=== PATIENT | male | born 1935 | race Caucasian/White ===

== ENCOUNTER 2019-06-26 16:01 | Inpatient (IN) | payer MEDICARE, OTHER ==
[2019-06-26] MEDS ORDERED: Sodium Chloride 0.9% 10 ML Syringe FLUSH PRN (16:17)
[2019-06-26] MEDS ORDERED: Sodium Chloride 0.9% 1,000 ML IV ONE (16:17)
--- NOTE | 2019-06-26 16:47 | EDM.PDOC ---
ED HPI GENERAL MEDICAL PROBLEM - General Chief Complaint: Fever Stated Complaint: [facility] Time Seen by Provider: 06/26/19 16:16 Source of Information: Reports: Patient, Family (son), Senior Living Records, RN Notes Reviewed History Limitations: Reports: No Limitations - History of Present Illness INITIAL COMMENTS - FREE TEXT/NARRATIVE: Patient is an 84-year-old male who is brought into the ED by EMS for the evaluation of decreased O2 sats and a fever. The patient is a resident at [facility]. The son notes that since yesterday, the patient has had decreased O2 sats and increased shortness of breath. He was asked if he wanted to come to the ER yesterday, and but he denied this. He notes that today the patient was having increasing difficulties with breathing, generalized weakness and lethargy, and developed a fever of 101.2F. Staff at [facility] report the patient's O2 sats were in the low 80s on 3 L, and he is usually on room air, he does not really require oxygen at. They do note he is having a productive cough , but the patient states he is not able to get anything out. Patient's blood pressure was mildly low at [facility] as well, systolically 89/54. The patient is alert and oriented, and will answer questions when asked, but then kind of zones out after being asked questions. At time of triage in the ER temperature is 101.2F, respiratory rate 22, heart rate 94, O2 sat is 91% on 2 L nasal cannula and his blood pressure is 117/63. Patient notes he is a DNR, and he is "ready to ". - Related Data Allergies Allergy/AdvReac Type Severity Reaction Status Date / Time No Known Allergies Allergy Verified 06/26/19 16:12 Home Meds: Home Meds Acetaminophen [Tylenol] 325 mg PO BID 06/26/19 [History] Albuterol Sulfate 2.5 mg IH Q4HR PRN 06/26/19 [History] Furosemide [Lasix] 80 mg PO DAILY 06/26/19 [History] Lisinopril [Prinivil] 10 mg PO BID 06/26/19 [History] Metoprolol Succinate 75 mg PO DAILY 06/26/19 [History] Nystatin 1 each TOP BID PRN 06/26/19 [History] Rosuvastatin [Crestor] 10 mg PO DAILY 06/26/19 [History] Terazosin [Hytrin] 2 mg PO DAILY 06/26/19 [History] Warfarin Sodium [Coumadin] 5 mg PO ASDIRECTED 06/26/19 [History] Warfarin [Coumadin] 2.5 mg PO ASDIRECTED 06/26/19 [History] Past Medical History HEENT History: Reports: Impaired Vision Cardiovascular History: Reports: Afib, Blood Clots/VTE/DVT, Heart Failure, High Cholesterol, Hypertension Respiratory History: Reports: Sleep Apnea Gastrointestinal History: Reports: Chronic Constipation Genitourinary History: Reports: None Musculoskeletal History: Reports: Other (See Below) Other Musculoskeletal History: Myalgia Neurological History: Reports: CVA, Speech Problems Psychiatric History: Reports: None Endocrine/Metabolic History: Reports: Hypokalemia, Obesity/BMI 30+, Osteopenia, Vitamin D Deficiency Hematologic History: Reports: Anemia, Anticoagulation Therapy Immunologic History: Reports: None Oncologic (Cancer) History: Reports: None Dermatologic History: Reports: None - Infectious Disease History Infectious Disease History: Reports: None Social & Family History - Tobacco Use Smoking Status *Q: Never Smoker - Caffeine Use Caffeine Use: Reports: None - Recreational Drug Use Recreational Drug Use: No ED ROS GENERAL - Review of Systems Review Of Systems: See Below Constitutional: Reports: Fever. Denies: Chills Respiratory: Reports: Shortness of Breath, Cough, Sputum Cardiovascular: Denies: Chest Pain Endocrine: Reports: No Symptoms GI/Abdominal: Denies: Abdominal Pain, Constipation, Diarrhea, Nausea, Vomiting : Denies: Dysuria, Frequency, Urgency Musculoskeletal: Reports: No Symptoms Skin: Reports: No Symptoms Neurological: Reports: No Symptoms Psychiatric: Reports: No Symptoms Hematologic/Lymphatic: Reports: No Symptoms Immunologic: Reports: No Symptoms ED EXAM, SEPSIS - Physical Exam Exam: See Below Exam Limited By: No Limitations General Appearance: Alert (when asked questions), Mild Distress (mildly tachypneic, taking rapid, shallow, labored breaths.), Obese Eye Exam: Bilateral Eye: Normal Inspection Throat/Mouth: Normal Inspection, Normal Lips, Normal Teeth, Normal Gums, Normal Oropharynx, Normal Voice, No Airway Compromise Head: Atraumatic, Normocephalic Neck: Normal Inspection Respiratory/Chest: No Respiratory Distress, No Accessory Muscle Use, Chest Non- Tender, Decreased Breath Sounds (diffuse bilaterally), Rhonchi (slight on Left lung), Accessory Muscle Use (belly breathing) Cardiovascular: Normal Peripheral Pulses, Regular Rate, Rhythm, No Murmur Peripheral Pulses: 3+: Radial (L), Radial (R) GI/Abdominal Exam: Normal Bowel Sounds, Soft, Non-Tender, No Distention, No Mass Extremities: Normal Inspection, Normal Capillary Refill Neurological: Alert, Oriented, Normal Cognition, No Motor/Sensory Deficits Psychiatric: Normal Affect, Normal Mood Skin: Warm, Dry, Intact, Normal Color, No Rash Course - Vital Signs Last Recorded V/S: Last Vital Signs Temp 101.2 F H 06/26/19 16:06 Pulse 94 06/26/19 16:06 Resp 22 H 06/26/19 16:06 BP 117/63 06/26/19 16:06 Pulse Ox 87 L 06/26/19 16:06 - Orders/Labs/Meds Orders: Active Orders 24 hr Category Date Time Status Queen Catheter Insertion [Insert Urinary Catheter] [OM. 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 [MOLEC] Stat Lab 06/26/19 18:58 Ordered Furosemide [Lasix] Med 06/26/19 18:57 Once 80 mg IVPUSH NOW ONE Levofloxacin/Dextrose 5%-Water [Levaquin in D5W 500 MG/ Med 06/26/19 18:27 Active 100 ML] 500 mg Premix Bag 1 bag IV ONETIME Sodium Chloride 0.9% [Saline Flush] Med 06/26/19 16:17 Active 10 ml FLUSH ASDIRECTED PRN Blood Culture x2 Reflex Set [OM.PC] Stat Oth 06/26/19 16:17 Ordered Saline Lock Insert [OM.PC] Stat Oth 06/26/19 16:17 Ordered Medication Orders Levofloxacin/Dextrose 500 mg/ (Premix) 100 mls @ 100 mls/hr IV ONETIME ONE Stop: 06/26/19 19:26 Sodium Chloride (Saline Flush) 10 ml FLUSH ASDIRECTED PRN PRN Reason: Keep Vein Open Last Admin: 06/26/19 17:00 Dose: 10 ml Labs: Laboratory Tests 06/26/19 06/26/19 06/26/19 Range/Units 16:33 16:33 16:33 WBC (4.23-9.07) K/mm3 RBC (4.63-6.08) M/mm3 Hgb (13.7-17.5) gm/dl Hct (40.1-51.0) % MCV (79.0-92.2) fl MCH (25.7-32.2) pg MCHC (32.2-35.5) g/dl RDW Std Deviation (35.1-43.9) fL Plt Count (163-337) K/mm3 MPV (9.4-12.3) fl Neutrophils % (Manual) (40-60) % Band Neutrophils % (0-10) % Lymphocytes % (Manual) (20-40) % Atypical Lymphs % % Monocytes % (Manual) (2-10) % Eosinophils % (Manual) (0.8-7.0) % Basophils % (Manual) (0.2-1.2) Platelet Estimate Hypochromasia Target Cells Tear Drop Cells RBC Morph Comment PT 29.1 H (9.7-12.0) SECONDS INR 2.83 Sodium 143 (136-145) mEq/L Potassium 4.7 (3.5-5.1) mEq/L Chloride 109 H (98-107) mEq/L Carbon Dioxide 33 H (21-32) mEq/L Anion Gap 5.7 (5-15) BUN 31 H (7-18) mg/dL Creatinine 1.5 H (0.7-1.3) mg/dL Est Cr Clr Drug Dosing 34.26 mL/min Estimated GFR (MDRD) 45 (>60) mL/min BUN/Creatinine Ratio 20.7 H (14-18) Glucose 134 H (83-115) mg/dL Lactic Acid 1.3 (0.4-2.0) mmol/L Calcium 8.3 L (8.5-10.1) mg/dL Total Bilirubin 0.2 (0.2-1.0) mg/dL AST 18 (15-37) U/L ALT 19 (16-63) U/L Alkaline Phosphatase 62 (46-116) U/L C-Reactive Protein 24.0 H* (<1.0) mg/dL NT-Pro-B Natriuret Pep (0-450) pg/mL Total Protein 7.2 (6.4-8.2) g/dl Albumin 2.5 L (3.4-5.0) g/dl Globulin 4.7 gm/dL Albumin/Globulin Ratio 0.5 L (1-2) Urine Color (Yellow) Urine Appearance (Clear) Urine pH (5.0-8.0) Ur Specific [place] (1.005-1.030) Urine Protein (Negative) Urine Glucose (UA) (Negative) Urine Ketones (Negative) Urine Occult Blood (Negative) Urine Nitrite (Negative) Urine Bilirubin (Negative) Urine Urobilinogen (0.2-1.0) Ur Leukocyte Esterase (Negative) Urine RBC (0-5) /hpf Urine WBC (0-5) /hpf Ur Epithelial Cells (0-5) /hpf Urine Bacteria (FEW) /hpf Hyaline Casts (0-5) /lpf Coarse Granular Casts (0-5) /hpf Urine Mucus (FEW) /hpf 06/26/19 06/26/19 06/26/19 Range/Units 16:40 17:12 17:15 WBC 9.52 H (4.23-9.07) K/mm3 RBC 3.96 L (4.63-6.08) M/mm3 Hgb 10.5 L (13.7-17.5) gm/dl Hct 35.7 L (40.1-51.0) % MCV 90.2 (79.0-92.2) fl MCH 26.5 (25.7-32.2) pg MCHC 29.4 L (32.2-35.5) g/dl RDW Std Deviation 46.4 H (35.1-43.9) fL Plt Count 156 L (163-337) K/mm3 MPV 10.0 (9.4-12.3) fl Neutrophils % (Manual) 85 H (40-60) % Band Neutrophils % 0 (0-10) % Lymphocytes % (Manual) 8 L (20-40) % Atypical Lymphs % 0 % Monocytes % (Manual) 6 (2-10) % Eosinophils % (Manual) 1 (0.8-7.0) % Basophils % (Manual) 0 L (0.2-1.2) Platelet Estimate Decreased Hypochromasia 2+ moderate Target Cells 1+ slight Tear Drop Cells 1+ slight RBC Morph Comment Not Reportable PT (9.7-12.0) SECONDS INR Sodium (136-145) mEq/L Potassium (3.5-5.1) mEq/L Chloride (98-107) mEq/L Carbon Dioxide (21-32) mEq/L Anion Gap (5-15) BUN (7-18) mg/dL Creatinine (0.7-1.3) mg/dL Est Cr Clr Drug Dosing mL/min Estimated GFR (MDRD) (>60) mL/min BUN/Creatinine Ratio (14-18) Glucose (83-115) mg/dL Lactic Acid (0.4-2.0) mmol/L Calcium (8.5-10.1) mg/dL Total Bilirubin (0.2-1.0) mg/dL AST (15-37) U/L ALT (16-63) U/L Alkaline Phosphatase (46-116) U/L C-Reactive Protein (<1.0) mg/dL NT-Pro-B Natriuret Pep 7419 H (0-450) pg/mL Total Protein (6.4-8.2) g/dl Albumin (3.4-5.0) g/dl Globulin gm/dL Albumin/Globulin Ratio (1-2) Urine Color Yellow (Yellow) Urine Appearance Clear (Clear) Urine pH 5.5 (5.0-8.0) Ur Specific [place] 1.025 (1.005-1.030) Urine Protein 2+ H (Negative) Urine Glucose (UA) Negative (Negative) Urine Ketones Negative (Negative) Urine Occult Blood 2+ H (Negative) Urine Nitrite Negative (Negative) Urine Bilirubin Negative (Negative) Urine Urobilinogen 0.2 (0.2-1.0) Ur Leukocyte Esterase Negative (Negative) Urine RBC 0-5 (0-5) /hpf Urine WBC 0-5 (0-5) /hpf Ur Epithelial Cells 5-10 H (0-5) /hpf Urine Bacteria Few (FEW) /hpf Hyaline Casts 0-5 (0-5) /lpf Coarse Granular Casts 0-5 (0-5) /hpf Urine Mucus Few (FEW) /hpf Meds: Medications Generic Name Dose Route Start Last Admin Trade Name Freq PRN Reason Stop Dose Admin Levofloxacin/Dextrose 500 mg/ 100 mls @ 100 mls/hr 06/26/19 18:27 Premix IV 06/26/19 19:26 ONETIME ONE Sodium Chloride 10 ml 06/26/19 16:17 06/26/19 17:00 Saline Flush FLUSH 10 ml ASDIRECTED PRN Administration Keep Vein Open Discontinued Medications Generic Name Dose Route Start Last Admin Trade Name Freq PRN Reason Stop Dose Admin Sodium Chloride 1,000 mls @ 999 mls/hr 06/26/19 16:17 06/26/19 17:05 Normal Saline IV 06/26/19 17:17 999 mls/hr BOLUS ONE Administration - Re-Assessments/Exams Free Text/Narrative Re-Assessment/Exam: 06/26/19 16:52 Patient presents to the ED for the evaluation of a fever and increased O2 sats. At the patient's initial exam, clinically positive for sepsis in nature. I did order blood cultures 2, CBC, CMP, CRP, lactate sepsis reflex, PT/INR, urinalysis by quick catheter, chest x-ray, an IV with IV fluids. Due to the patient's morbid obesity, ideal body weight will be used, with a plan of the total 66 kg IBW, the bolus was calculated to be 1,986 for ideal body weight. Although he is not hypotensive at this time, fluids to run at 150 mils per hour , due to the patient receiving 80 mg Lasix daily, I do not want to worsen his heart failure before, the labs results. 06/26/19 17:33 Some labs have been resulted, lactic acid is 1.3, white blood cell count 9.5 with 85% Neutrophils and 0 bands, CRP markedly elevated at 24. Chest x-ray is done, and demonstrates a possible left-sided consolidation, pneumonia versus fluid at this time. This x-ray was reviewed by myself and Dr. Dunaway. 06/26/19 18:59 Patient's B[place], and is [place] 7419, I did discuss results with the patient and the patient's family, I do not have the official radiology read for the chest x-ray, but again it does show left-sided consolidation, with pneumonia versus fluid. However with the fever and CRP would suggest a bacterial infection, on top of the elevated BNP as well. I did discuss the case with Dr. Torres, he is accepting the patient or hospital admission. He requested a MRSA swab be done, and I did insert a Queen catheter, as Dr. Torres wanted to repeat his normal Lasix dose of 80 mg. Departure - Departure Time of Disposition: 19:01 Disposition: Admitted As Inpatient 68 Condition: Fair Clinical Impression: Pneumonia Qualifiers: Pneumonia type: due to unspecified organism Laterality: left Lung location: unspecified part of lung Qualified Code(s): J18.9 - Pneumonia, unspecified organism Acute exacerbation of CHF (congestive heart failure) Qualifiers: Heart failure type: unspecified Qualified Code(s): I50.9 - Heart failure, unspecified - Discharge Information *PRESCRIPTION DRUG MONITORING PROGRAM REVIEWED*: No *COPY OF PRESCRIPTION DRUG MONITORING REPORT IN PATIENT GAMALIEL: No Referrals: Maria De Jesus Khanna MD [Physician] - Forms: ED Department Discharge - My Orders Last 24 Hours: My Active Orders 06/26/19 16:17 Chest 1V Frontal [CR] Stat Sodium Chloride 0.9% [Saline Flush] 10 ml FLUSH ASDIRECTED PRN Blood Culture x2 Reflex Set [OM.PC] Stat Saline Lock Insert [OM.PC] Stat 06/26/19 16:33 CULTURE BLOOD [BC] Stat 06/26/19 16:40 CULTURE BLOOD [BC] Stat 06/26/19 17:10 Insert Queen Catheter [Insert Urinary Catheter] [OM.PC] Stat Urinary Catheter Assessment [RC] ASDIRECTED 06/26/19 17:15 CULTURE URINE [RM] Routine 06/26/19 18:27 Levofloxacin/Dextrose 5%-Water [Levaquin in D5W 500 MG/100 ML] 500 mg Premix Bag 1 bag IV ONETIME 06/26/19 18:53 Urinary Catheter Assessment [RC] ASDIRECTED 06/26/19 18:57 Furosemide [Lasix] 80 mg IVPUSH NOW ONE 06/26/19 18:58 METH-RESIST S.AUR,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 - Assessment/Plan Last 24 Hours: My Active Orders 06/26/19 16:17 Chest 1V Frontal [CR] Stat Sodium Chloride 0.9% [Saline Flush] 10 ml FLUSH ASDIRECTED PRN Blood Culture x2 Reflex Set [OM.PC] Stat Saline Lock Insert [OM.PC] Stat 06/26/19 16:33 CULTURE BLOOD [BC] Stat 06/26/19 16:40 CULTURE BLOOD [BC] Stat 06/26/19 17:10 Insert Queen Catheter [Insert Urinary Catheter] [OM.PC] Stat Urinary Catheter Assessment [RC] ASDIRECTED 06/26/19 17:15 CULTURE URINE [RM] Routine 06/26/19 18:27 Levofloxacin/Dextrose 5%-Water [Levaquin in D5W 500 MG/100 ML] 500 mg Premix Bag 1 bag IV ONETIME 06/26/19 18:53 Urinary Catheter Assessment [RC] ASDIRECTED 06/26/19 18:57 Furosemide [Lasix] 80 mg IVPUSH NOW ONE 06/26/19 18:58 METH-RESIST S.AUR,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
[2019-06-26] MEDS ORDERED: Levofloxacin/Dextrose 5%-Water 500 MG in Premix Bag 1 BAG IV ONE (18:27)
[2019-06-26] MEDS ORDERED: Furosemide 40 MG/4 ML VIAL IVPUSH ONE (18:57)
[2019-06-26] MEDS ORDERED: Acetaminophen 325 MG Tab PO ONE (20:16)
[2019-06-26] MEDS ORDERED: Ondansetron 4 MG/2 ML SDV IV PRN (21:02)
[2019-06-26] MEDS ORDERED: Albuterol 0.083% 2.5 MG/3 ML Neb Soln NEB PRN (21:02)
--- NOTE | 2019-06-26 21:09 | PCM.HP.2 ---
H&P History of Present Illness - General Date of Service: 06/26/19 Admit Problem/Dx: Admission Diagnosis/Problem Admission Diagnosis/Problem Pneumonia - History of Present Illness Initial Comments - Free Text/Narative: 84-year-old male who is a poor historian so most of the history was obtained through his son and emergency room notes presented to the emergency room via EMS secondary to decreased O2 sats and fever. Patient has had increasing shortness of breath for last couple of days and he was out today at his sons for a football game and towards the end of football game told us and he needs to go to the emergency room. Apparently the staff at [facility], where he resides, recommended he go to the emergency room yesterday. Patient has had increasing difficulties with breathing, generalized weakness and malaise , and a fever 101.2. Pulse ox were as low as low 80s on 3 L and he is usually on room air. Patient has a productive cough but is unable to mobilize sputum. Lab work in the emergency room: WBC 9.5, hemoglobin 10.5, platelet count 156, C- reactive protein 24.0, lactic acid 1.3, proBNP 7419, INR 2.83, sodium 143, potassium 4.7, chloride 109, bicarbonate 33, BUN 31, creatinine 1.5, normal liver function tests except albumin 2.5. Chest x-ray showed a left lower lobe pneumonia In the emergency room he was given Levaquin 500 mg IV and a saline bolus. I then asked for him to get 80 mg of IV Lasix. - Related Data Allergies/Adverse Reactions: Allergies Allergy/AdvReac Type Severity Reaction Status Date / Time No Known Allergies Allergy Verified 06/26/19 20:55 Home Medications: Home Meds Acetaminophen [Tylenol] 650 mg PO BID 06/26/19 [History] Albuterol Sulfate 2.5 mg IH Q4HR PRN 06/26/19 [History] Furosemide [Lasix] 80 mg PO DAILY 06/26/19 [History] Lisinopril [Prinivil] 10 mg PO BID 06/26/19 [History] Metoprolol Succinate 75 mg PO DAILY 06/26/19 [History] Nystatin 1 each TOP BID PRN 06/26/19 [History] Rosuvastatin [Crestor] 10 mg PO DAILY 06/26/19 [History] Terazosin [Hytrin] 2 mg PO DAILY 06/26/19 [History] Warfarin Sodium [Coumadin] 5 mg PO ASDIRECTED 06/26/19 [History] Warfarin [Coumadin] 2.5 mg PO ASDIRECTED 06/26/19 [History] Past Medical History HEENT History: Reports: Impaired Vision Cardiovascular History: Reports: Afib, Blood Clots/VTE/DVT, Heart Failure, High Cholesterol, Hypertension Respiratory History: Reports: Sleep Apnea Gastrointestinal History: Reports: Chronic Constipation Genitourinary History: Reports: None Musculoskeletal History: Reports: Other (See Below) Other Musculoskeletal History: Myalgia Neurological History: Reports: CVA, Speech Problems Psychiatric History: Reports: None Endocrine/Metabolic History: Reports: Hypokalemia, Obesity/BMI 30+, Osteopenia, Vitamin D Deficiency Hematologic History: Reports: Anemia, Anticoagulation Therapy Immunologic History: Reports: None Oncologic (Cancer) History: Reports: None Dermatologic History: Reports: None - Infectious Disease History Infectious Disease History: Reports: None Social & Family History - Tobacco Use Smoking Status *Q: Never Smoker - Caffeine Use Caffeine Use: Reports: None - Recreational Drug Use Recreational Drug Use: No H&P Review of Systems - Review of Systems: Review Of Systems: Comprehensive ROS is negative, except as noted in HPI. Exam - Exam Exam: See Below - Vital Signs Vital Signs: Last Vital Signs Temp 101 F H 06/26/19 20:22 Pulse 94 06/26/19 16:06 Resp 22 H 06/26/19 16:06 BP 117/63 06/26/19 16:06 Pulse Ox 87 L 06/26/19 16:06 Weight: 257 lb 8 oz - Exam Quality Assessment: Supplemental Oxygen General: Alert, Moderate Distress HEENT: Conjunctiva Clear, Mucosa Moist & [place] Neck: Supple Lungs: Decreased Breath Sounds, Rhonchi (left lobe) Cardiovascular: Regular Rate, Irregular Rhythm GI/Abdominal Exam: Normal Bowel Sounds, Soft, Non-Tender, No Distention Back Exam: Normal Inspection Extremities: Normal Inspection, Non-Tender, Pedal Edema Skin: Warm, Dry, Intact Neurological: No: Cranial Nerves Intact (left-sided facial droop) Neuro Extensive - Mental Status: Alert, Disorientation to Time Neuro Extensive - Motor, Sensory, Reflexes: Other (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) Psychiatric: Alert - Patient Data Lab Results Last 24 hrs: Laboratory Results - last 24 hr 06/26/19 06/26/19 06/26/19 Range/Units 16:33 16:33 16:33 WBC (4.23-9.07) K/mm3 RBC (4.63-6.08) M/mm3 Hgb (13.7-17.5) gm/dl Hct (40.1-51.0) % MCV (79.0-92.2) fl MCH (25.7-32.2) pg MCHC (32.2-35.5) g/dl RDW Std Deviation (35.1-43.9) fL Plt Count (163-337) K/mm3 MPV (9.4-12.3) fl Neutrophils % (Manual) (40-60) % Band Neutrophils % (0-10) % Lymphocytes % (Manual) (20-40) % Atypical Lymphs % % Monocytes % (Manual) (2-10) % Eosinophils % (Manual) (0.8-7.0) % Basophils % (Manual) (0.2-1.2) Platelet Estimate Hypochromasia Target Cells Tear Drop Cells RBC Morph Comment PT 29.1 H (9.7-12.0) SECONDS INR 2.83 Sodium 143 (136-145) mEq/L Potassium 4.7 (3.5-5.1) mEq/L Chloride 109 H (98-107) mEq/L Carbon Dioxide 33 H (21-32) mEq/L Anion Gap 5.7 (5-15) BUN 31 H (7-18) mg/dL Creatinine 1.5 H (0.7-1.3) mg/dL Est Cr Clr Drug Dosing 34.26 mL/min Estimated GFR (MDRD) 45 (>60) mL/min BUN/Creatinine Ratio 20.7 H (14-18) Glucose 134 H (83-115) mg/dL Lactic Acid 1.3 (0.4-2.0) mmol/L Calcium 8.3 L (8.5-10.1) mg/dL Total Bilirubin 0.2 (0.2-1.0) mg/dL AST 18 (15-37) U/L ALT 19 (16-63) U/L Alkaline Phosphatase 62 (46-116) U/L C-Reactive Protein 24.0 H* (<1.0) mg/dL NT-Pro-B Natriuret Pep (0-450) pg/mL Total Protein 7.2 (6.4-8.2) g/dl Albumin 2.5 L (3.4-5.0) g/dl Globulin 4.7 gm/dL Albumin/Globulin Ratio 0.5 L (1-2) Urine Color (Yellow) Urine Appearance (Clear) Urine pH (5.0-8.0) Ur Specific [place] (1.005-1.030) Urine Protein (Negative) Urine Glucose (UA) (Negative) Urine Ketones (Negative) Urine Occult Blood (Negative) Urine Nitrite (Negative) Urine Bilirubin (Negative) Urine Urobilinogen (0.2-1.0) Ur Leukocyte Esterase (Negative) Urine RBC (0-5) /hpf Urine WBC (0-5) /hpf Ur Epithelial Cells (0-5) /hpf Urine Bacteria (FEW) /hpf Hyaline Casts (0-5) /lpf Coarse Granular Casts (0-5) /hpf Urine Mucus (FEW) /hpf 06/26/19 06/26/19 06/26/19 Range/Units 16:40 17:12 17:15 WBC 9.52 H (4.23-9.07) K/mm3 RBC 3.96 L (4.63-6.08) M/mm3 Hgb 10.5 L (13.7-17.5) gm/dl Hct 35.7 L (40.1-51.0) % MCV 90.2 (79.0-92.2) fl MCH 26.5 (25.7-32.2) pg MCHC 29.4 L (32.2-35.5) g/dl RDW Std Deviation 46.4 H (35.1-43.9) fL Plt Count 156 L (163-337) K/mm3 MPV 10.0 (9.4-12.3) fl Neutrophils % (Manual) 85 H (40-60) % Band Neutrophils % 0 (0-10) % Lymphocytes % (Manual) 8 L (20-40) % Atypical Lymphs % 0 % Monocytes % (Manual) 6 (2-10) % Eosinophils % (Manual) 1 (0.8-7.0) % Basophils % (Manual) 0 L (0.2-1.2) Platelet Estimate Decreased Hypochromasia 2+ moderate Target Cells 1+ slight Tear Drop Cells 1+ slight RBC Morph Comment Not Reportable PT (9.7-12.0) SECONDS INR Sodium (136-145) mEq/L Potassium (3.5-5.1) mEq/L Chloride (98-107) mEq/L Carbon Dioxide (21-32) mEq/L Anion Gap (5-15) BUN (7-18) mg/dL Creatinine (0.7-1.3) mg/dL Est Cr Clr Drug Dosing mL/min Estimated GFR (MDRD) (>60) mL/min BUN/Creatinine Ratio (14-18) Glucose (83-115) mg/dL Lactic Acid (0.4-2.0) mmol/L Calcium (8.5-10.1) mg/dL Total Bilirubin (0.2-1.0) mg/dL AST (15-37) U/L ALT (16-63) U/L Alkaline Phosphatase (46-116) U/L C-Reactive Protein (<1.0) mg/dL NT-Pro-B Natriuret Pep 7419 H (0-450) pg/mL Total Protein (6.4-8.2) g/dl Albumin (3.4-5.0) g/dl Globulin gm/dL Albumin/Globulin Ratio (1-2) Urine Color Yellow (Yellow) Urine Appearance Clear (Clear) Urine pH 5.5 (5.0-8.0) Ur Specific [place] 1.025 (1.005-1.030) Urine Protein 2+ H (Negative) Urine Glucose (UA) Negative (Negative) Urine Ketones Negative (Negative) Urine Occult Blood 2+ H (Negative) Urine Nitrite Negative (Negative) Urine Bilirubin Negative (Negative) Urine Urobilinogen 0.2 (0.2-1.0) Ur Leukocyte Esterase Negative (Negative) Urine RBC 0-5 (0-5) /hpf Urine WBC 0-5 (0-5) /hpf Ur Epithelial Cells 5-10 H (0-5) /hpf Urine Bacteria Few (FEW) /hpf Hyaline Casts 0-5 (0-5) /lpf Coarse Granular Casts 0-5 (0-5) /hpf Urine Mucus Few (FEW) /hpf Result Diagrams: 06/26/19 16:40 06/26/19 16:33 Problem List Initiated/Reviewed/Updated: Yes Orders Last 24hrs: Active Orders 24 hr Category Date Time Status Admission Status [Patient Status] [ADT] Routine ADT 06/26/19 19:26 Active Queen Catheter Insertion [Insert Urinary Catheter] [OM. Care 06/26/19 19:00 Ordered PC] Q24H Insert [place] Catheter [Insert Urinary Catheter] [OM.PC] Care 06/26/19 17:10 Ordered Stat Oxygen Therapy [RC] PRN Care 06/26/19 21:02 Ordered RT Aerosol Therapy [RC] ASDIRECTED Care 06/26/19 21:04 Ordered Up With Assistance [RC] ASDIRECTED Care 06/26/19 21:02 Ordered Urinary Catheter Assessment [RC] ASDIRECTED Care 06/26/19 17:10 Active Urinary Catheter Assessment [RC] ASDIRECTED Care 06/26/19 18:53 Active VTE/DVT Education [RC] PER UNIT ROUTINE Care 06/26/19 21:02 Ordered Vital Signs [RC] Q4H Care 06/26/19 21:02 Ordered Respiratory Care Assess and Treatment [CONS] Routine Cons 06/26/19 21:05 Ordered Heart Healthy Diet [DIET] Diet 06/27/19 Breakfast Ordered Chest 1V Frontal [CR] Stat Exams 06/26/19 16:17 Taken BLOOD GAS ARTERIAL [BG] Stat Lab 06/26/19 21:02 Ordered C-REACTIVE PROTEIN [CHEM] AM Lab 06/27/19 05:11 Ordered C-REACTIVE PROTEIN [CHEM] AM Lab 06/28/19 05:11 Ordered C-REACTIVE PROTEIN [CHEM] AM Lab 06/29/19 05:11 Ordered CBC WITH AUTO DIFF [HEME] AM Lab 06/27/19 05:11 Ordered CBC WITH AUTO DIFF [HEME] AM Lab 06/28/19 05:11 Ordered CBC WITH AUTO DIFF [HEME] AM Lab 06/29/19 05:11 Ordered COMPREHENSIVE METABOLIC PN,CMP [CHEM] AM Lab 06/27/19 05:11 Ordered COMPREHENSIVE METABOLIC PN,CMP [CHEM] AM Lab 06/28/19 05:11 Ordered COMPREHENSIVE METABOLIC PN,CMP [CHEM] AM Lab 06/29/19 05:11 Ordered CULTURE BLOOD [BC] Stat Lab 06/26/19 16:33 Received CULTURE BLOOD [BC] Stat Lab 06/26/19 16:40 Received CULTURE SPUTUM + SMEAR [RM] Stat Lab 06/26/19 19:03 Ordered CULTURE URINE [RM] Routine Lab 06/26/19 17:15 Received INFLUENZA A+B AG SCREEN [RM] Routine Lab 06/26/19 21:08 Ordered INR,PT,PROTHROMBIN TIME [COAG] AM Lab 06/27/19 05:11 Ordered INR,PT,PROTHROMBIN TIME [COAG] AM Lab 06/28/19 05:11 Ordered INR,PT,PROTHROMBIN TIME [COAG] AM Lab 06/29/19 05:11 Ordered LEGIONELLA ANTIGEN [MREF] Routine Lab 06/26/19 21:08 Ordered MAGNESIUM [CHEM] AM Lab 06/27/19 05:11 Ordered MAGNESIUM [CHEM] AM Lab 06/28/19 05:11 Ordered MAGNESIUM [CHEM] AM Lab 06/29/19 05:11 Ordered METH-RESIST S.AUR,MRSA BY PCR [place] [place] Stat Lab 06/26/19 19:35 Received RESPIRATORY PANEL Routine Lab 06/26/19 21:08 Ordered STREP PNEUMONIAE ANTIGEN [MREF] Routine Lab 06/26/19 21:07 Ordered Acetaminophen [Tylenol] Med 06/26/19 21:02 Ordered 650 mg PO Q4H PRN Albuterol [Proventil Neb Soln] Med 06/26/19 21:02 Ordered 2.5 mg NEB Q2H PRN Albuterol/Ipratropium [DuoNeb 3.0-0.5 MG/3 ML] Med 06/26/19 21:15 Ordered 3 ml NEB Q4H Cefepime [Maxipime in D5W 2 GM/50 ML] 2 gm Med 06/26/19 21:15 Ordered Premix Bag 1 bag IV Q8H Ondansetron [Zofran] Med 06/26/19 21:02 Ordered 4 mg IV Q4H PRN Pharmacy to Dose - Vancomycin Med 06/26/19 21:15 Ordered 1 dose .XX ASDIRECTED Pharmacy to Dose - Warfarin Med 06/26/19 21:15 Ordered 1 dose .XX ASDIRECTED Sodium Chloride 0.9% [Saline Flush] Med 06/26/19 16:17 Active 10 ml FLUSH ASDIRECTED PRN methylPREDNISolone Sod Succ [Solu-MEDROL] Med 06/26/19 21:15 Ordered 60 mg IVPUSH Q6H Blood Culture x2 Reflex Set [OM.PC] Stat Oth 06/26/19 16:17 Ordered Saline Lock Insert [OM.PC] Stat Oth 06/26/19 16:17 Ordered Resuscitation Status Routine Resus Stat 06/26/19 21:02 Ordered Medication Orders Acetaminophen (Tylenol) 650 mg PO Q4H PRN PRN Reason: Pain (Mild 1-3)/fever Albuterol (Proventil Neb Soln) 2.5 mg NEB Q2H PRN PRN Reason: Shortness Of Breath/wheezing Albuterol/Ipratropium (Duoneb 3.0-0.5 Mg/3 Ml) 3 ml NEB Q4H OMAYRA Cefepime HCl 2 gm/ Premix 50 mls @ 100 mls/hr IV Q8H OMAYRA Methylprednisolone Sodium Succinate (Solu-Medrol) 60 mg IVPUSH Q6H OMAYRA Ondansetron HCl (Zofran) 4 mg IV Q4H PRN PRN Reason: Nausea/Vomiting Sodium Chloride (Saline Flush) 10 ml FLUSH ASDIRECTED PRN PRN Reason: Keep Vein Open Last Admin: 06/26/19 17:00 Dose: 10 ml Vancomycin HCl (Pharmacy To Dose - Vancomycin) 1 dose .XX ASDIRECTED OMAYRA Warfarin Sodium (Pharmacy To Dose - Warfarin) 1 dose .XX ASDIRECTED OMAYRA Assessment/Plan Comment:: Assessment * Left lower lobe pneumonia * Respiratory failure * ABG: PH 7.31, PCO2 60.7, PCO2 73.0, HCO3 29.9 - acute respiratory acidosis * Acute on chronic congestive heart failure - unclear what type since we don't have an echocardiogram * Rate controlled atrial fibrillation * Anticoagulation on warfarin * acute on chronic renal insufficiency with acute renal injury * History of CVA with right-sided weakness and dysarthria * History of hypertension and hyperlipidemia Plan * Admit to Medr floor on telemetry * BiPAP - patient is a DNI and DNR. I discussed care with him and his son and we will treat with BiPAP but not escalate to intubation. * IV steroids * DuoNeb every 4 hours and albuterol every 2 hours when necessary * Add cefepime 2 g pharmacy to dose and vancomycin * continue Levaquin pharmacy to dose * Warfarin pharmacy to dose * reconcile home meds * Daily CBC, CMP, mag, and INR * VTE prophylaxis with warfarin * CODE STATUS: DNR/DNI * Length of stay likely 3-4 days. - Mortality Measure Prognosis:: Poor
[2019-06-26] MEDS: methylPREDNISolone Sodium Succinate 40 MG/1 ML SDV IVPUSH SCH (21:35)
[2019-06-26] MEDS: Cefepime 2 GM in Premix Bag 1 BAG IV SCH (21:35)
[2019-06-26] MEDS ORDERED: Nystatin Topical Powder 15 GM Bottle TOP PRN (21:41)
[2019-06-26] MEDS ORDERED: Vancomycin 2 GM in Sodium Chloride 0.9% 500 ML IV ONE (22:00)
[2019-06-26] MEDS: guaiFENesin 600 MG Tab.ER PO SCH (22:24)
[2019-06-26] MEDS: Albuterol/Ipratropium 3.0-0.5 MG/3 ML Neb Soln NEB SCH (22:44)
[2019-06-26] MEDS ORDERED: Warfarin 2.5 MG Tab PO ONE (23:30)
[2019-06-27] MEDS: Albuterol/Ipratropium 3.0-0.5 MG/3 ML Neb Soln NEB SCH ×5 (01:34→17:17)
[2019-06-27] MEDS: methylPREDNISolone Sodium Succinate 40 MG/1 ML SDV IVPUSH SCH ×4 (02:42→20:46)
--- NOTE | 2019-06-27 08:33 | PCM.PN ---
- General Info Date of Service: 06/27/19 Admission Dx/Problem (Free Text): Admission Diagnosis/Problem Admission Diagnosis/Problem Pneumonia Subjective Update: Tiarra is doing better. Less air hunger and improving oxygenation. Functional Status: Reports: Pain Controlled - Review of Systems General: Reports: No Symptoms HEENT: Reports: No Symptoms Pulmonary: Reports: Shortness of Breath Cardiovascular: Reports: No Symptoms - Patient Data Vitals - Most Recent: Last Vital Signs Temp 97.5 F 06/27/19 07:41 Pulse 87 06/27/19 07:41 Resp 20 06/27/19 07:41 BP 151/95 H 06/27/19 07:41 Pulse Ox 92 L 06/27/19 07:41 Weight - Most Recent: 261 lb 12.8 oz I&O - Last 24 Hours: Intake & Output 06/26/19 06/27/19 06/27/19 22:59 06:59 14:59 Intake Total 750 Output Total 350 1650 Balance -350 -900 Lab Results Last 24 Hours: Laboratory Results - last 24 hr 06/26/19 06/26/19 06/26/19 Range/Units 16:33 16:33 16:33 WBC (4.23-9.07) K/mm3 RBC (4.63-6.08) M/mm3 Hgb (13.7-17.5) gm/dl Hct (40.1-51.0) % MCV (79.0-92.2) fl MCH (25.7-32.2) pg MCHC (32.2-35.5) g/dl RDW Std Deviation (35.1-43.9) fL Plt Count (163-337) K/mm3 MPV (9.4-12.3) fl Neut % (Auto) (34.0-67.9) % Lymph % (Auto) (21.8-53.1) % Cache % (Auto) (5.3-12.2) % Eos % (Auto) (0.8-7.0) Baso % (Auto) (0.1-1.2) % Neut # (Auto) (1.78-5.38) K/mm3 Lymph # (Auto) (1.32-3.57) K/mm3 Cache # (Auto) (0.30-0.82) K/mm3 Eos # (Auto) (0.04-0.54) K/mm3 Baso # (Auto) (0.01-0.08) K/mm3 Neutrophils % (Manual) (40-60) % Band Neutrophils % (0-10) % Lymphocytes % (Manual) (20-40) % Atypical Lymphs % % Monocytes % (Manual) (2-10) % Eosinophils % (Manual) (0.8-7.0) % Basophils % (Manual) (0.2-1.2) Manual Slide Review Platelet Estimate Hypochromasia Target Cells Tear Drop Cells RBC Morph Comment PT 29.1 H (9.7-12.0) SECONDS INR 2.83 Puncture Site ABG pH (7.35-7.45) ABG pCO2 (35.0-45.0) mmHg ABG pO2 (80.0-100.0) mmHg ABG HCO3 (22.0-26.0) meq/L ABG O2 Saturation (96.0-97.0) % ABG Base Excess (-2-2.0) A-a Gradient mmHg O2 Delivery Device Oxygen Flow Rate FiO2 (21.00-100.00) % Sodium 143 (136-145) mEq/L Potassium 4.7 (3.5-5.1) mEq/L Chloride 109 H (98-107) mEq/L Carbon Dioxide 33 H (21-32) mEq/L Anion Gap 5.7 (5-15) BUN 31 H (7-18) mg/dL Creatinine 1.5 H (0.7-1.3) mg/dL Est Cr Clr Drug Dosing 34.26 mL/min Estimated GFR (MDRD) 45 (>60) mL/min BUN/Creatinine Ratio 20.7 H (14-18) Glucose 134 H (83-115) mg/dL Lactic Acid 1.3 (0.4-2.0) mmol/L Calcium 8.3 L (8.5-10.1) mg/dL Magnesium (1.8-2.4) mg/dl Total Bilirubin 0.2 (0.2-1.0) mg/dL AST 18 (15-37) U/L ALT 19 (16-63) U/L Alkaline Phosphatase 62 (46-116) U/L C-Reactive Protein 24.0 H* (<1.0) mg/dL NT-Pro-B Natriuret Pep (0-450) pg/mL Total Protein 7.2 (6.4-8.2) g/dl Albumin 2.5 L (3.4-5.0) g/dl Globulin 4.7 gm/dL Albumin/Globulin Ratio 0.5 L (1-2) Urine Color (Yellow) Urine Appearance (Clear) Urine pH (5.0-8.0) Ur Specific [place] (1.005-1.030) Urine Protein (Negative) Urine Glucose (UA) (Negative) Urine Ketones (Negative) Urine Occult Blood (Negative) Urine Nitrite (Negative) Urine Bilirubin (Negative) Urine Urobilinogen (0.2-1.0) Ur Leukocyte Esterase (Negative) Urine RBC (0-5) /hpf Urine WBC (0-5) /hpf Ur Epithelial Cells (0-5) /hpf Urine Bacteria (FEW) /hpf Hyaline Casts (0-5) /lpf Coarse Granular Casts (0-5) /hpf Urine Mucus (FEW) /hpf MRSA (PCR) 06/26/19 06/26/19 06/26/19 Range/Units 16:40 17:12 17:15 WBC 9.52 H (4.23-9.07) K/mm3 RBC 3.96 L (4.63-6.08) M/mm3 Hgb 10.5 L (13.7-17.5) gm/dl Hct 35.7 L (40.1-51.0) % MCV 90.2 (79.0-92.2) fl MCH 26.5 (25.7-32.2) pg MCHC 29.4 L (32.2-35.5) g/dl RDW Std Deviation 46.4 H (35.1-43.9) fL Plt Count 156 L (163-337) K/mm3 MPV 10.0 (9.4-12.3) fl Neut % (Auto) (34.0-67.9) % Lymph % (Auto) (21.8-53.1) % Cache % (Auto) (5.3-12.2) % Eos % (Auto) (0.8-7.0) Baso % (Auto) (0.1-1.2) % Neut # (Auto) (1.78-5.38) K/mm3 Lymph # (Auto) (1.32-3.57) K/mm3 Cache # (Auto) (0.30-0.82) K/mm3 Eos # (Auto) (0.04-0.54) K/mm3 Baso # (Auto) (0.01-0.08) K/mm3 Neutrophils % (Manual) 85 H (40-60) % Band Neutrophils % 0 (0-10) % Lymphocytes % (Manual) 8 L (20-40) % Atypical Lymphs % 0 % Monocytes % (Manual) 6 (2-10) % Eosinophils % (Manual) 1 (0.8-7.0) % Basophils % (Manual) 0 L (0.2-1.2) Manual Slide Review Platelet Estimate Decreased Hypochromasia 2+ moderate Target Cells 1+ slight Tear Drop Cells 1+ slight RBC Morph Comment Not Reportable PT (9.7-12.0) SECONDS INR Puncture Site ABG pH (7.35-7.45) ABG pCO2 (35.0-45.0) mmHg ABG pO2 (80.0-100.0) mmHg ABG HCO3 (22.0-26.0) meq/L ABG O2 Saturation (96.0-97.0) % ABG Base Excess (-2-2.0) A-a Gradient mmHg O2 Delivery Device Oxygen Flow Rate FiO2 (21.00-100.00) % Sodium (136-145) mEq/L Potassium (3.5-5.1) mEq/L Chloride (98-107) mEq/L Carbon Dioxide (21-32) mEq/L Anion Gap (5-15) BUN (7-18) mg/dL Creatinine (0.7-1.3) mg/dL Est Cr Clr Drug Dosing mL/min Estimated GFR (MDRD) (>60) mL/min BUN/Creatinine Ratio (14-18) Glucose (83-115) mg/dL Lactic Acid (0.4-2.0) mmol/L Calcium (8.5-10.1) mg/dL Magnesium (1.8-2.4) mg/dl Total Bilirubin (0.2-1.0) mg/dL AST (15-37) U/L ALT (16-63) U/L Alkaline Phosphatase (46-116) U/L C-Reactive Protein (<1.0) mg/dL NT-Pro-B Natriuret Pep 7419 H (0-450) pg/mL Total Protein (6.4-8.2) g/dl Albumin (3.4-5.0) g/dl Globulin gm/dL Albumin/Globulin Ratio (1-2) Urine Color Yellow (Yellow) Urine Appearance Clear (Clear) Urine pH 5.5 (5.0-8.0) Ur Specific [place] 1.025 (1.005-1.030) Urine Protein 2+ H (Negative) Urine Glucose (UA) Negative (Negative) Urine Ketones Negative (Negative) Urine Occult Blood 2+ H (Negative) Urine Nitrite Negative (Negative) Urine Bilirubin Negative (Negative) Urine Urobilinogen 0.2 (0.2-1.0) Ur Leukocyte Esterase Negative (Negative) Urine RBC 0-5 (0-5) /hpf Urine WBC 0-5 (0-5) /hpf Ur Epithelial Cells 5-10 H (0-5) /hpf Urine Bacteria Few (FEW) /hpf Hyaline Casts 0-5 (0-5) /lpf Coarse Granular Casts 0-5 (0-5) /hpf Urine Mucus Few (FEW) /hpf MRSA (PCR) 06/26/19 06/26/19 06/27/19 Range/Units 19:35 21:20 05:21 WBC 7.57 (4.23-9.07) K/mm3 RBC 3.73 L (4.63-6.08) M/mm3 Hgb 9.8 L (13.7-17.5) gm/dl Hct 33.7 L (40.1-51.0) % MCV 90.3 (79.0-92.2) fl MCH 26.3 (25.7-32.2) pg MCHC 29.1 L (32.2-35.5) g/dl RDW Std Deviation 46.4 H (35.1-43.9) fL Plt Count 143 L (163-337) K/mm3 MPV 10.3 (9.4-12.3) fl Neut % (Auto) 93.5 H (34.0-67.9) % Lymph % (Auto) 4.6 L (21.8-53.1) % Cache % (Auto) 1.7 L (5.3-12.2) % Eos % (Auto) 0 L (0.8-7.0) Baso % (Auto) 0.1 (0.1-1.2) % Neut # (Auto) 7.07 H (1.78-5.38) K/mm3 Lymph # (Auto) 0.35 L (1.32-3.57) K/mm3 Cache # (Auto) 0.13 L (0.30-0.82) K/mm3 Eos # (Auto) 0.00 L (0.04-0.54) K/mm3 Baso # (Auto) 0.01 (0.01-0.08) K/mm3 Neutrophils % (Manual) (40-60) % Band Neutrophils % (0-10) % Lymphocytes % (Manual) (20-40) % Atypical Lymphs % % Monocytes % (Manual) (2-10) % Eosinophils % (Manual) (0.8-7.0) % Basophils % (Manual) (0.2-1.2) Manual Slide Review Abnormal smear Platelet Estimate Hypochromasia Target Cells Tear Drop Cells RBC Morph Comment PT (9.7-12.0) SECONDS INR Puncture Site Rt brachial ABG pH 7.31 L (7.35-7.45) ABG pCO2 60.7 H (35.0-45.0) mmHg ABG pO2 73.0 L (80.0-100.0) mmHg ABG HCO3 29.9 H (22.0-26.0) meq/L ABG O2 Saturation 93.2 L (96.0-97.0) % ABG Base Excess 3.3 H (-2-2.0) A-a Gradient 80 mmHg O2 Delivery Device Cannula Oxygen Flow Rate 3.0 FiO2 32.00 (21.00-100.00) % Sodium (136-145) mEq/L Potassium (3.5-5.1) mEq/L Chloride (98-107) mEq/L Carbon Dioxide (21-32) mEq/L Anion Gap (5-15) BUN (7-18) mg/dL Creatinine (0.7-1.3) mg/dL Est Cr Clr Drug Dosing mL/min Estimated GFR (MDRD) (>60) mL/min BUN/Creatinine Ratio (14-18) Glucose (83-115) mg/dL Lactic Acid (0.4-2.0) mmol/L Calcium (8.5-10.1) mg/dL Magnesium (1.8-2.4) mg/dl Total Bilirubin (0.2-1.0) mg/dL AST (15-37) U/L ALT (16-63) U/L Alkaline Phosphatase (46-116) U/L C-Reactive Protein (<1.0) mg/dL NT-Pro-B Natriuret Pep (0-450) pg/mL Total Protein (6.4-8.2) g/dl Albumin (3.4-5.0) g/dl Globulin gm/dL Albumin/Globulin Ratio (1-2) Urine Color (Yellow) Urine Appearance (Clear) Urine pH (5.0-8.0) Ur Specific [place] (1.005-1.030) Urine Protein (Negative) Urine Glucose (UA) (Negative) Urine Ketones (Negative) Urine Occult Blood (Negative) Urine Nitrite (Negative) Urine Bilirubin (Negative) Urine Urobilinogen (0.2-1.0) Ur Leukocyte Esterase (Negative) Urine RBC (0-5) /hpf Urine WBC (0-5) /hpf Ur Epithelial Cells (0-5) /hpf Urine Bacteria (FEW) /hpf Hyaline Casts (0-5) /lpf Coarse Granular Casts (0-5) /hpf Urine Mucus (FEW) /hpf MRSA (PCR) Negative 06/27/19 06/27/19 Range/Units 05:21 05:21 WBC (4.23-9.07) K/mm3 RBC (4.63-6.08) M/mm3 Hgb (13.7-17.5) gm/dl Hct (40.1-51.0) % MCV (79.0-92.2) fl MCH (25.7-32.2) pg MCHC (32.2-35.5) g/dl RDW Std Deviation (35.1-43.9) fL Plt Count (163-337) K/mm3 MPV (9.4-12.3) fl Neut % (Auto) (34.0-67.9) % Lymph % (Auto) (21.8-53.1) % Cache % (Auto) (5.3-12.2) % Eos % (Auto) (0.8-7.0) Baso % (Auto) (0.1-1.2) % Neut # (Auto) (1.78-5.38) K/mm3 Lymph # (Auto) (1.32-3.57) K/mm3 Cache # (Auto) (0.30-0.82) K/mm3 Eos # (Auto) (0.04-0.54) K/mm3 Baso # (Auto) (0.01-0.08) K/mm3 Neutrophils % (Manual) (40-60) % Band Neutrophils % (0-10) % Lymphocytes % (Manual) (20-40) % Atypical Lymphs % % Monocytes % (Manual) (2-10) % Eosinophils % (Manual) (0.8-7.0) % Basophils % (Manual) (0.2-1.2) Manual Slide Review Platelet Estimate Hypochromasia Target Cells Tear Drop Cells RBC Morph Comment PT 29.8 H (9.7-12.0) SECONDS INR 2.90 Puncture Site ABG pH (7.35-7.45) ABG pCO2 (35.0-45.0) mmHg ABG pO2 (80.0-100.0) mmHg ABG HCO3 (22.0-26.0) meq/L ABG O2 Saturation (96.0-97.0) % ABG Base Excess (-2-2.0) A-a Gradient mmHg O2 Delivery Device Oxygen Flow Rate FiO2 (21.00-100.00) % Sodium 142 (136-145) mEq/L Potassium 4.9 (3.5-5.1) mEq/L Chloride 107 (98-107) mEq/L Carbon Dioxide 28 (21-32) mEq/L Anion Gap 11.9 (5-15) BUN 29 H (7-18) mg/dL Creatinine 1.3 (0.7-1.3) mg/dL Est Cr Clr Drug Dosing 45.24 mL/min Estimated GFR (MDRD) 53 (>60) mL/min BUN/Creatinine Ratio 22.3 H (14-18) Glucose 158 H (83-115) mg/dL Lactic Acid (0.4-2.0) mmol/L Calcium 8.2 L (8.5-10.1) mg/dL Magnesium 2.1 (1.8-2.4) mg/dl Total Bilirubin 0.3 (0.2-1.0) mg/dL AST 24 (15-37) U/L ALT 16 (16-63) U/L Alkaline Phosphatase 51 (46-116) U/L C-Reactive Protein 21.4 H* (<1.0) mg/dL NT-Pro-B Natriuret Pep (0-450) pg/mL Total Protein 6.6 (6.4-8.2) g/dl Albumin 2.2 L (3.4-5.0) g/dl Globulin 4.4 gm/dL Albumin/Globulin Ratio 0.5 L (1-2) Urine Color (Yellow) Urine Appearance (Clear) Urine pH (5.0-8.0) Ur Specific [place] (1.005-1.030) Urine Protein (Negative) Urine Glucose (UA) (Negative) Urine Ketones (Negative) Urine Occult Blood (Negative) Urine Nitrite (Negative) Urine Bilirubin (Negative) Urine Urobilinogen (0.2-1.0) Ur Leukocyte Esterase (Negative) Urine RBC (0-5) /hpf Urine WBC (0-5) /hpf Ur Epithelial Cells (0-5) /hpf Urine Bacteria (FEW) /hpf Hyaline Casts (0-5) /lpf Coarse Granular Casts (0-5) /hpf Urine Mucus (FEW) /hpf MRSA (PCR) Young Results Last 24 Hours: Microbiology 06/26/19 22:19 Influenza Type A Antigen Screen - Final Nasal, Unspecified NEGATIVE INFLUENZA A VIRUS AG REFERENCE RANGE: NEGATIVE Influenza Type B Antigen Screen - Final NEGATIVE INFLUENZA B VIRUS AG REFERENCE RANGE: NEGATIVE Med Orders - Current: Current Medications Acetaminophen (Tylenol) 650 mg PO Q4H PRN PRN Reason: Pain (Mild 1-3)/fever Albuterol (Proventil Neb Soln) 2.5 mg NEB Q2H PRN PRN Reason: Shortness Of Breath/wheezing Albuterol/Ipratropium (Duoneb 3.0-0.5 Mg/3 Ml) 3 ml NEB Q4H [facility] Last Admin: 06/27/19 08:31 Dose: 3 ml Furosemide (Lasix) 80 mg PO DAILY [facility] Guaifenesin (Mucinex) 1,200 mg PO BID [facility] Last Admin: 06/26/19 22:24 Dose: 1,200 mg Cefepime HCl 2 gm/ Premix 50 mls @ 100 mls/hr IV Q12H [facility] Last Admin: 06/26/19 21:35 Dose: 100 mls/hr Levofloxacin/Dextrose 750 mg/ (Premix) 150 mls @ 100 mls/hr IV Q24H [facility] Vancomycin HCl 1.75 gm/ Sodium (Chloride) 500 mls @ 250 mls/hr IV Q24H [facility] Methylprednisolone Sodium Succinate (Solu-Medrol) 60 mg IVPUSH Q6H [facility] Last Admin: 06/27/19 02:42 Dose: 60 mg Metoprolol Succinate (Toprol Xl) 75 mg PO DAILY [facility] Nystatin (Nystop) 0 gm TOP BID PRN PRN Reason: Rash Ondansetron HCl (Zofran) 4 mg IV Q4H PRN PRN Reason: Nausea/Vomiting Rosuvastatin Calcium (Crestor) 10 mg PO DAILY [facility] Sodium Chloride (Saline Flush) 10 ml FLUSH ASDIRECTED PRN PRN Reason: Keep Vein Open Last Admin: 06/26/19 17:00 Dose: 10 ml Terazosin HCl (Hytrin) 2 mg PO DAILY [facility] Vancomycin HCl (Pharmacy To Dose - Vancomycin) 1 dose .XX ASDIRECTED [facility] Warfarin Sodium (Pharmacy To Dose - Warfarin) 1 dose .XX ASDIRECTED [facility] Discontinued Medications Acetaminophen (Tylenol) 650 mg PO NOW ONE Stop: 06/26/19 20:17 Last Admin: 06/26/19 20:22 Dose: 650 mg Furosemide (Lasix) 80 mg IVPUSH NOW ONE Stop: 06/26/19 18:58 Last Admin: 06/26/19 19:21 Dose: 80 mg Sodium Chloride (Normal Saline) 1,000 mls @ 999 mls/hr IV BOLUS ONE Stop: 06/26/19 17:17 Last Admin: 06/26/19 17:05 Dose: 999 mls/hr Levofloxacin/Dextrose 500 mg/ (Premix) 100 mls @ 100 mls/hr IV ONETIME ONE Stop: 06/26/19 19:26 Last Admin: 06/26/19 19:09 Dose: 100 mls/hr Vancomycin HCl 2 gm/ Sodium (Chloride) 500 mls @ 250 mls/hr IV ONETIME ONE Stop: 06/26/19 23:59 Last Admin: 06/26/19 22:24 Dose: 250 mls/hr Lisinopril (Prinivil) 10 mg PO BID [facility] Warfarin Sodium (Coumadin) 2.5 mg PO ONETIME ONE Stop: 06/26/19 23:31 Last Admin: 06/27/19 00:19 Dose: 2.5 mg - Exam Quality Assessment: Supplemental Oxygen General: Alert HEENT: Pupils Equal Neck: Supple Lungs: Decreased Breath Sounds, Rhonchi Cardiovascular: Regular Rate, Irregular Rhythm GI/Abdominal Exam: Soft, Non-Tender Back Exam: Normal Inspection Extremities: Normal Inspection, Non-Tender Skin: Warm, Dry Psy/Mental Status: Alert, Normal Affect, Normal Mood - Problem List Review Problem List Initiated/Reviewed/Updated: Yes - My Orders Last 24 Hours: My Active Orders 06/26/19 17:15 LEGIONELLA ANTIGEN [MREF] Routine STREP PNEUMONIAE ANTIGEN [MREF] Routine 06/26/19 21:00 Cefepime [Maxipime in D5W 2 GM/50 ML] 2 gm Premix Bag 1 bag IV Q12H methylPREDNISolone Sod Succ [Solu-MEDROL] 60 mg IVPUSH Q6H 06/26/19 21:02 Oxygen Therapy [RC] PRN Up With Assistance [RC] ASDIRECTED VTE/DVT Education [RC] PER UNIT ROUTINE Vital Signs [RC] Q4H Acetaminophen [Tylenol] 650 mg PO Q4H PRN Albuterol [Proventil Neb Soln] 2.5 mg NEB Q2H PRN Ondansetron [Zofran] 4 mg IV Q4H PRN Resuscitation Status Routine 06/26/19 21:04 RT Aerosol Therapy [RC] ASDIRECTED 06/26/19 21:05 Respiratory Care Assess and Treatment [CONS] Routine 06/26/19 21:15 Albuterol/Ipratropium [DuoNeb 3.0-0.5 MG/3 ML] 3 ml NEB Q4H Pharmacy to Dose - Vancomycin 1 dose .XX ASDIRECTED Pharmacy to Dose - Warfarin 1 dose .XX ASDIRECTED 06/26/19 21:39 BIPAP Adult [RT BiPAP/CPAP] [RC] ASDIRECTED 06/26/19 21:41 Nystatin [Nystop] 0 gm TOP BID PRN 06/26/19 21:45 guaiFENesin [Mucinex] 1,200 mg PO BID 06/26/19 22:19 RESPIRATORY PANEL Routine 06/27/19 09:00 Furosemide [Lasix] 80 mg PO DAILY Metoprolol Succinate [Toprol XL] 75 mg PO DAILY Rosuvastatin [Crestor] 10 mg PO DAILY Terazosin [Hytrin] 2 mg PO DAILY 06/27/19 20:00 Levofloxacin/Dextrose 5%-Water [Levaquin in D5W 750 MG/150 ML] 750 mg Premix Bag 1 bag IV Q24H 06/27/19 22:00 Vancomycin 1.75 gm Sodium Chloride 0.9% [Normal Saline] 500 ml IV Q24H 06/27/19 Breakfast Heart Healthy Diet [DIET] 06/28/19 05:11 C-REACTIVE PROTEIN [CHEM] AM CBC WITH AUTO DIFF [HEME] AM COMPREHENSIVE METABOLIC PN,CMP [CHEM] AM INR,PT,PROTHROMBIN TIME [COAG] AM MAGNESIUM [CHEM] AM 06/29/19 05:11 C-REACTIVE PROTEIN [CHEM] AM CBC WITH AUTO DIFF [HEME] AM COMPREHENSIVE METABOLIC PN,CMP [CHEM] AM INR,PT,PROTHROMBIN TIME [COAG] AM MAGNESIUM [CHEM] AM - Plan Plan:: Assessment * Left lower lobe pneumonia * Respiratory failure * ABG: PH 7.31, PCO2 60.7, PCO2 73.0, HCO3 29.9 - acute respiratory acidosis * Acute on chronic congestive heart failure - unclear what type since we don't have an echocardiogram * Rate controlled atrial fibrillation * Anticoagulation on warfarin * acute on chronic renal insufficiency with acute renal injury * History of CVA with right-sided weakness and dysarthria * History of hypertension and hyperlipidemia Plan * Admit to [facility] floor on telemetry * BiPAP - patient is a DNI and DNR. I discussed care with him and his son and we will treat with BiPAP but not escalate to intubation. * IV steroids * DuoNeb every 4 hours and albuterol every 2 hours when necessary * cefepime and vancomycin pharmacy to dose * continue Levaquin pharmacy to dose * Warfarin pharmacy to dose * reconcile home meds * Daily CBC, CMP, mag, and INR * VTE prophylaxis with warfarin * CODE STATUS: DNR/DNI * Length of stay likely 3-4 days.
[2019-06-27] MEDS ORDERED: Lisinopril 10 MG Tab PO SCH (09:00)
[2019-06-27] MEDS: Metoprolol Succinate 50 MG Tab.ER PO SCH (09:19)
[2019-06-27] MEDS: Rosuvastatin 10 MG Tab PO SCH (09:21)
[2019-06-27] MEDS: guaiFENesin 600 MG Tab.ER PO SCH ×2 (09:21→20:46)
[2019-06-27] MEDS: Furosemide 80 MG Tab PO SCH (09:21)
[2019-06-27] MEDS: Cefepime 2 GM in Premix Bag 1 BAG IV SCH ×2 (09:22→20:45)
[2019-06-27] MEDS: Vancomycin 1.75 GM in Sodium Chloride 0.9% 500 ML IV SCH (15:57)
[2019-06-27] MEDS ORDERED: Furosemide 40 MG/4 ML VIAL IVPUSH ONE (16:00)
--- NOTE | 2019-06-27 16:34 | CR ---
Chest: Portable view of the chest was obtained. Comparison: No previous chest x-ray. Heart size is normal. Tortuous thoracic aorta is seen. Focal parenchymal density is noted within the left base. This is most likely due to pneumonia. Atelectasis is noted within the right lung base. Bony structures are grossly intact. Pressure: 1. Probable left basilar pneumonia. 2. Right basilar atelectasis. Diagnostic code #3
[2019-06-27] MEDS ORDERED: Warfarin 2.5 MG Tab PO SCH (18:00)
[2019-06-27] MEDS ORDERED: Levalbuterol HCl 1.25 MG/3 ML Neb NEB PRN (19:31)
[2019-06-27] MEDS ORDERED: Levofloxacin/Dextrose 5%-Water 750 MG in Premix Bag 1 BAG IV SCH (20:00)
[2019-06-27] MEDS: Acetaminophen 325 MG Tab PO PRN (20:56)
[2019-06-27] MEDS ORDERED: Vancomycin 1.75 GM in Sodium Chloride 0.9% 500 ML IV SCH (22:00)
[2019-06-27] MEDS: Ipratropium 0.02% 0.5 MG/2.5 ML Neb Soln NEB SCH (23:01)
[2019-06-27] MEDS: Levalbuterol HCl 1.25 MG/3 ML Neb NEB SCH (23:01)
[2019-06-28] MEDS: Ipratropium 0.02% 0.5 MG/2.5 ML Neb Soln NEB SCH ×4 (03:13→20:58)
[2019-06-28] MEDS: Levalbuterol HCl 1.25 MG/3 ML Neb NEB SCH ×4 (03:13→20:58)
[2019-06-28] MEDS: methylPREDNISolone Sodium Succinate 40 MG/1 ML SDV IVPUSH SCH ×4 (03:24→21:04)
[2019-06-28] MEDS: Acetaminophen 325 MG Tab PO PRN (03:25)
[2019-06-28] MEDS ORDERED: Metoprolol Tartrate 5 MG in Sodium Chloride 0.9% 50 ML IV ONE (06:09)
[2019-06-28] MEDS ORDERED: Metoprolol Tartrate 5 MG/5 ML SDV ONE (06:12)
[2019-06-28] MEDS ORDERED: Metoprolol Tartrate 5 MG/5 ML SDV IVPUSH ONE (06:18)
[2019-06-28] MEDS ORDERED: Iopamidol 755 Mg/ML 100 ML Bottle IVPUSH ONE (07:05)
[2019-06-28] MEDS ORDERED: Iopamidol 755 MG/ML 50 ML Bottle IVPUSH ONE (07:05)
[2019-06-28] MEDS ORDERED: Sodium Chloride 0.9% 100 ML IV SCH ×2 (07:15→08:47)
[2019-06-28] MEDS ORDERED: Sodium Chloride 0.9% 1,000 ML IV ONE (07:15)
[2019-06-28] MEDS: Sodium Chloride 0.9% 1,000 ML ONE ×3 (07:21→08:53)
--- NOTE | 2019-06-28 08:31 | CT ---
Head CT Technique: Multiple axial sections through the brain were obtained. Intravenous contrast was not utilized. Comparison: No prior intracranial imaging. Findings: Ventricles along with basal cisterns and sulci over the convexities are moderately prominent. Diffuse diminished density is noted within the periventricular and subcortical white matter which is compatible with small vessel ischemic demyelination change. Old lacunar infarcts are noted with thin the basal ganglia. No other abnormal parenchymal densities are seen. No evidence of intracranial hemorrhage. No midline shift or mass effect is seen. Bone window settings were reviewed. Visualized paranasal sinuses show nothing acute. Visualized mastoid sinuses also show nothing acute. No acute calvarial abnormality is appreciated. Impression: 1. Senescent change as noted above. 2. Nothing acute is definitely identified on noncontrast head CT study. Diagnostic code #2 I agree with preliminary report from [facility], finalized on 06/28/19, 8:26 AM Central Time
--- NOTE | 2019-06-28 08:31 | CT ---
CT chest Technique: Multiple axial sections through the chest were obtained. Intravenous contrast was utilized. Study performed as an aortogram exam. Comparison: No prior chest CT, prior chest x-ray of 06/26/19. Findings: Aorta shows mild atherosclerotic change with no aneurysm. No dissection is seen. Visualized pulmonary arteries show no larger pulmonary embolism. No mediastinal adenopathy is seen. Moderate coronary artery calcification is seen. No pericardial thickening is noted. Minimal bilateral pleural effusions are seen. Increased density is seen within both lung bases. Difficult to exclude pneumonia within the left base. Findings within the right base could represent additional small area of pneumonia but more likely due to atelectasis. Bone window settings were reviewed which show scattered degenerative change throughout the spine. No acute osseous abnormality is appreciated. Impression: 1. No thoracic aortic aneurysm or dissection is seen. No larger pulmonary emboli are seen. 2. Minimal bilateral pleural effusions. 3. Increased density within both lung bases. Findings within the left base could represent pneumonia. Findings within the right base could represent small area of pneumonia but more likely is due to atelectasis. Diagnostic code #3 CT abdomen and pelvis Technique: Multiple axial sections were obtained from above the dome of the diaphragm inferiorly through the pubic symphysis. Intravenous contrast was utilized. No oral contrast has been given. Comparison: No prior abdominal imaging is available. Findings: Large rectus sheath hematoma is identified. This has transverse measurements of 19.7 cm, AP measurements of 9.5 cm and craniocaudal measurement of about 18.7 cm. This is on the right side. Scattered cysts are seen within the liver. Largest cyst measures 2.8 cm. No discrete solid abnormality is appreciated. Spleen size is normal. Kidneys are somewhat atrophied and show evidence of small cortical cysts. No hydronephrosis is seen of either kidney. Pancreas is somewhat atrophied but shows no focal abnormality. Adrenal glands show no nodule. Aorta shows atherosclerotic change without dissection or aneurysm. Atherosclerotic change is noted within the branch vessels of the abdominal aorta. No retroperitoneal adenopathy is seen. Bladder wall thickening is noted with Queen catheter in place. Bilateral fat-containing inguinal hernias are noted. Fluid is seen within the right inguinal hernia. Appendix is not definitely seen. Bone window settings were reviewed which shows diffuse degenerative change throughout the spine. Impression: 1. Diffuse atherosclerotic calcification within the abdominal aorta and branch vessels. This calcific atherosclerosis makes evaluation for branch vessel stenosis difficult. 2. Large rectus sheath hematoma on the right side with measurements as noted above. 3. Bilateral fat-containing inguinal hernias. Diagnostic code #3
[2019-06-28] MEDS ORDERED: Sodium Chloride 0.9% 1,000 ML ONE ×2 (08:59→14:50)
[2019-06-28] MEDS ORDERED: Diltiazem 125 MG in Sodium Chloride 0.9% 100 ML IV SCH (09:00)
[2019-06-28] MEDS: Norepinephrine 4 MG in Dextrose 5% in Water 246 ML IV SCH ×4 (09:11→14:03)
[2019-06-28] MEDS ORDERED: Phytonadione 10 MG in Sodium Chloride 0.9% 50 ML IV ONE (09:15)
--- NOTE | 2019-06-28 09:26 | PCM.SN ---
- Free Text/Narrative Note: Called this morning at 6:07 AM. Patient's heart rate was sustained in the 130s. Patient has known atrial fibrillation and in order to give metoprolol tartrate 5 mg IV push was given. I was called back at [phone] notifying me that the IV had gone bad and he was not getting his metoprolol. At that point I asked him to call rapid response. When I arrived to the floor 20 minutes later patient was in CT getting a head CT. I ordered a CT angiogram of the chest, abdomen, and pelvis in addition. Patient was brought back to the ICU where his blood pressures continue to be low. 2 L of normal saline were ordered. Lab work returned with a significant drop in his hemoglobin down to 8.0 and an increase of his INR to 5.19 from 2.9 just the day before. Central line was placed by Dr. Mcgrath. I ordered a repeat for confirmation and the second hemoglobin was lower at 6.7 with an INR of 5.85. 2 units of fresh frozen plasma and 2 units of packed red blood cells were ordered. Norepinephrine drip was started to improve blood pressure. repeat INR after fresh frozen plasma was 2.32. Kcentra was ordered at this time. CT of the abdomen and pelvis showed a large rectus sheath hematoma with some active bleed measuring transversely 19.7 cm, AP measurements of 9.5 cm, and craniocaudal measurement of about 18.7 cm. No evidence of abdominal aneurysm or rupture. during this entire time I kept the patient and his son updated on all measures.
[2019-06-28] MEDS: Cefepime 2 GM in Premix Bag 1 BAG IV SCH ×2 (09:29→20:30)
--- NOTE | 2019-06-28 09:32 | CR ---
Chest: Portable view of the chest was obtained. Comparison: Prior chest x-ray of 06/26/19. Slightly improving density within the left base from prior chest x-ray. Findings have not completely cleared. Previous atelectasis within the right lung base has also slightly improved. Upper lungs show no acute parenchymal change. Heart size and mediastinum are within normal limits for portable technique. Bony structures are grossly intact. Right sided central line is seen. Tip difficult to identify but lies at least within the right atrium. Impression: 1. Slightly improved densities within both lung bases. 2. Right sided central line is seen. Tip is difficult to definitely identify but is felt to lie within the right atrium. 3. No pneumothorax is appreciated. Diagnostic code #3
[2019-06-28] MEDS: Sodium Chloride 0.9% 1,000 ML IV SCH ×2 (09:46→16:18)
[2019-06-28] MEDS: Furosemide 80 MG Tab PO SCH (09:57)
[2019-06-28] MEDS: guaiFENesin 600 MG Tab.ER PO SCH ×2 (12:13→20:31)
[2019-06-28] MEDS: Rosuvastatin 10 MG Tab PO SCH (12:13)
[2019-06-28] MEDS: Metoprolol Succinate 50 MG Tab.ER PO SCH (12:14)
[2019-06-28] MEDS: Vancomycin 1.75 GM in Sodium Chloride 0.9% 500 ML IV SCH (12:54)
[2019-06-28] MEDS ORDERED: Factor IX Complex Human 500 UNIT VIAL IV ONE (13:15)
--- NOTE | 2019-06-28 15:00 | PCM.PRNOTE ---
- Free Text/Narrative Note: Date: 06/28/2019 Procedure: right internal jugular central line placement with ultrasound guidance The patient was placed in Trendelenburg and the right neck and chest were prepped and draped in sterile fashion. Hat, mask, gown, and gloves were worn in order to maintain sterility. The ultrasound was used to identify the right internal jugular vein in transverse orientation. A large gauge hollow needle on a syringe was placed into the vein under visualization with the ultrasound. Dark blood was aspirated, and the syringe removed. A guidewire was threaded through the needle and the needle removed. A small emeka with the knife was made at the insertion site of the wire, and a dilator was placed over the wire through the skin prior to placement of the central line. The central line was passed over the wire using Seldinger technique, with no resistance encountered. All three ports flushed easily and skip back easily. The line was sutured in place at the skin and a sterile dressing was applied. CXR was ordered to confirm proper positioning of the line. The patient tolerated the procedure well. Pradip Mcgrath MD General Surgery
--- NOTE | 2019-06-28 15:17 | PCM.PN ---
- General Info Date of Service: 06/28/19 Admission Dx/Problem (Free Text): Admission Diagnosis/Problem Admission Diagnosis/Problem Pneumonia Subjective Update: Patient was transferred to the ICU after having a large rectus sheath hematoma secondary to significantly elevated INR over the last 24 hours. Patient's INR increased from 2.9-5.8 oral last 24 hours. He appeared only had a bleed into his right side of his rectus sheath causing hypotension. Coagulopathy was corrected and he received 3 units of packed red blood cells. Patient continues on norepinephrine drip to maintain blood pressure. He is awake and alert. Answers questions. 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 This is not new and it is not worse. Functional Status: Reports: Pain Controlled - Review of Systems General: Reports: Fatigue HEENT: Reports: No Symptoms Pulmonary: Reports: Shortness of Breath Cardiovascular: Reports: No Symptoms Gastrointestinal: Reports: Abdominal Pain (mild/minimal RUQ pain) Musculoskeletal: Reports: No Symptoms - Patient Data Vitals - Most Recent: Last Vital Signs Temp 96.8 F 06/28/19 15:14 Pulse 110 H 06/28/19 15:14 Resp 20 06/28/19 15:14 BP 102/65 06/28/19 15:14 Pulse Ox 91 L 06/28/19 15:00 Weight - Most Recent: 260 lb 6.4 oz I&O - Last 24 Hours: Intake & Output 06/28/19 06/28/19 06/28/19 06:59 14:59 22:59 Intake Total 600 760 0 Output Total 1350 Balance -750 760 0 Lab Results Last 24 Hours: Laboratory Results - last 24 hr 06/28/19 06/28/19 06/28/19 Range/Units 05:41 05:41 05:41 WBC 15.06 H (4.23-9.07) K/mm3 RBC 3.05 L (4.63-6.08) M/mm3 Hgb 8.0 L D (13.7-17.5) gm/dl Hct 27.1 L (40.1-51.0) % MCV 88.9 (79.0-92.2) fl MCH 26.2 (25.7-32.2) pg MCHC 29.5 L (32.2-35.5) g/dl RDW Std Deviation 44.9 H (35.1-43.9) fL Plt Count 273 D (163-337) K/mm3 MPV 10.6 (9.4-12.3) fl Neut % (Auto) 88.8 H (34.0-67.9) % Lymph % (Auto) 5.5 L (21.8-53.1) % [place] % (Auto) 5.0 L (5.3-12.2) % Eos % (Auto) 0 L (0.8-7.0) Baso % (Auto) 0.1 (0.1-1.2) % Neut # (Auto) 13.36 H (1.78-5.38) K/mm3 Lymph # (Auto) 0.83 L (1.32-3.57) K/mm3 [place] # (Auto) 0.76 (0.30-0.82) K/mm3 Eos # (Auto) 0.00 L (0.04-0.54) K/mm3 Baso # (Auto) 0.02 (0.01-0.08) K/mm3 Manual Slide Review Abnormal smear PT 51.5 H* D (9.7-12.0) SECONDS INR 5.19 H* Sodium 142 (136-145) mEq/L Potassium 4.4 (3.5-5.1) mEq/L Chloride 105 (98-107) mEq/L Carbon Dioxide 25 (21-32) mEq/L Anion Gap 16.4 H (5-15) BUN 43 H (7-18) mg/dL Creatinine 2.1 H (0.7-1.3) mg/dL Est Cr Clr Drug Dosing 28.00 mL/min Estimated GFR (MDRD) 30 (>60) mL/min BUN/Creatinine Ratio 20.5 H (14-18) Glucose 239 H (83-115) mg/dL POC Glucose (83-110) mg/dL Lactic Acid (0.4-2.0) mmol/L Calcium 8.1 L (8.5-10.1) mg/dL Magnesium 2.1 (1.8-2.4) mg/dl Total Bilirubin 0.3 (0.2-1.0) mg/dL AST 38 H (15-37) U/L ALT 25 (16-63) U/L Alkaline Phosphatase 44 L (46-116) U/L Troponin I (0.00-0.056) ng/mL C-Reactive Protein 12.8 H* (<1.0) mg/dL Total Protein 5.7 L (6.4-8.2) g/dl Albumin 2.0 L (3.4-5.0) g/dl Globulin 3.7 gm/dL Albumin/Globulin Ratio 0.5 L (1-2) Vancomycin Trough (10.0-20.0) Blood Type Gel Antibody Screen Crossmatch 06/28/19 06/28/19 06/28/19 Range/Units 06:33 07:24 07:45 WBC (4.23-9.07) K/mm3 RBC (4.63-6.08) M/mm3 Hgb 6.7 L* (13.7-17.5) gm/dl Hct 22.7 L (40.1-51.0) % MCV (79.0-92.2) fl MCH (25.7-32.2) pg MCHC (32.2-35.5) g/dl RDW Std Deviation (35.1-43.9) fL Plt Count (163-337) K/mm3 MPV (9.4-12.3) fl Neut % (Auto) (34.0-67.9) % Lymph % (Auto) (21.8-53.1) % [place] % (Auto) (5.3-12.2) % Eos % (Auto) (0.8-7.0) Baso % (Auto) (0.1-1.2) % Neut # (Auto) (1.78-5.38) K/mm3 Lymph # (Auto) (1.32-3.57) K/mm3 [place] # (Auto) (0.30-0.82) K/mm3 Eos # (Auto) (0.04-0.54) K/mm3 Baso # (Auto) (0.01-0.08) K/mm3 Manual Slide Review PT (9.7-12.0) SECONDS INR Sodium (136-145) mEq/L Potassium (3.5-5.1) mEq/L Chloride (98-107) mEq/L Carbon Dioxide (21-32) mEq/L Anion Gap (5-15) BUN (7-18) mg/dL Creatinine (0.7-1.3) mg/dL Est Cr Clr Drug Dosing mL/min Estimated GFR (MDRD) (>60) mL/min BUN/Creatinine Ratio (14-18) Glucose (83-115) mg/dL POC Glucose 268 H (83-110) mg/dL Lactic Acid (0.4-2.0) mmol/L Calcium (8.5-10.1) mg/dL Magnesium (1.8-2.4) mg/dl Total Bilirubin (0.2-1.0) mg/dL AST (15-37) U/L ALT (16-63) U/L Alkaline Phosphatase (46-116) U/L Troponin I 0.031 (0.00-0.056) ng/mL C-Reactive Protein (<1.0) mg/dL Total Protein (6.4-8.2) g/dl Albumin (3.4-5.0) g/dl Globulin gm/dL Albumin/Globulin Ratio (1-2) Vancomycin Trough (10.0-20.0) Blood Type Gel Antibody Screen Crossmatch 06/28/19 06/28/19 06/28/19 Range/Units 07:45 07:45 09:06 WBC (4.23-9.07) K/mm3 RBC (4.63-6.08) M/mm3 Hgb (13.7-17.5) gm/dl Hct (40.1-51.0) % MCV (79.0-92.2) fl MCH (25.7-32.2) pg MCHC (32.2-35.5) g/dl RDW Std Deviation (35.1-43.9) fL Plt Count (163-337) K/mm3 MPV (9.4-12.3) fl Neut % (Auto) (34.0-67.9) % Lymph % (Auto) (21.8-53.1) % [place] % (Auto) (5.3-12.2) % Eos % (Auto) (0.8-7.0) Baso % (Auto) (0.1-1.2) % Neut # (Auto) (1.78-5.38) K/mm3 Lymph # (Auto) (1.32-3.57) K/mm3 [place] # (Auto) (0.30-0.82) K/mm3 Eos # (Auto) (0.04-0.54) K/mm3 Baso # (Auto) (0.01-0.08) K/mm3 Manual Slide Review PT 57.7 H* (9.7-12.0) SECONDS INR 5.85 H* Sodium (136-145) mEq/L Potassium (3.5-5.1) mEq/L Chloride (98-107) mEq/L Carbon Dioxide (21-32) mEq/L Anion Gap (5-15) BUN (7-18) mg/dL Creatinine (0.7-1.3) mg/dL Est Cr Clr Drug Dosing mL/min Estimated GFR (MDRD) (>60) mL/min BUN/Creatinine Ratio (14-18) Glucose (83-115) mg/dL POC Glucose (83-110) mg/dL Lactic Acid (0.4-2.0) mmol/L Calcium (8.5-10.1) mg/dL Magnesium (1.8-2.4) mg/dl Total Bilirubin (0.2-1.0) mg/dL AST (15-37) U/L ALT (16-63) U/L Alkaline Phosphatase (46-116) U/L Troponin I (0.00-0.056) ng/mL C-Reactive Protein (<1.0) mg/dL Total Protein (6.4-8.2) g/dl Albumin (3.4-5.0) g/dl Globulin gm/dL Albumin/Globulin Ratio (1-2) Vancomycin Trough 16.2 (10.0-20.0) Blood Type O NEGATIVE Gel Antibody Screen Negative Crossmatch See Detail 06/28/19 06/28/19 06/28/19 Range/Units 09:06 09:22 11:46 WBC (4.23-9.07) K/mm3 RBC (4.63-6.08) M/mm3 Hgb (13.7-17.5) gm/dl Hct (40.1-51.0) % MCV (79.0-92.2) fl MCH (25.7-32.2) pg MCHC (32.2-35.5) g/dl RDW Std Deviation (35.1-43.9) fL Plt Count (163-337) K/mm3 MPV (9.4-12.3) fl Neut % (Auto) (34.0-67.9) % Lymph % (Auto) (21.8-53.1) % [place] % (Auto) (5.3-12.2) % Eos % (Auto) (0.8-7.0) Baso % (Auto) (0.1-1.2) % Neut # (Auto) (1.78-5.38) K/mm3 Lymph # (Auto) (1.32-3.57) K/mm3 [place] # (Auto) (0.30-0.82) K/mm3 Eos # (Auto) (0.04-0.54) K/mm3 Baso # (Auto) (0.01-0.08) K/mm3 Manual Slide Review PT 24.1 H D (9.7-12.0) SECONDS INR 2.32 Sodium (136-145) mEq/L Potassium (3.5-5.1) mEq/L Chloride (98-107) mEq/L Carbon Dioxide (21-32) mEq/L Anion Gap (5-15) BUN (7-18) mg/dL Creatinine (0.7-1.3) mg/dL Est Cr Clr Drug Dosing mL/min Estimated GFR (MDRD) (>60) mL/min BUN/Creatinine Ratio (14-18) Glucose (83-115) mg/dL POC Glucose (83-110) mg/dL Lactic Acid 2.6 H* (0.4-2.0) mmol/L Calcium (8.5-10.1) mg/dL Magnesium (1.8-2.4) mg/dl Total Bilirubin (0.2-1.0) mg/dL AST (15-37) U/L ALT (16-63) U/L Alkaline Phosphatase (46-116) U/L Troponin I (0.00-0.056) ng/mL C-Reactive Protein (<1.0) mg/dL Total Protein (6.4-8.2) g/dl Albumin (3.4-5.0) g/dl Globulin gm/dL Albumin/Globulin Ratio (1-2) Vancomycin Trough (10.0-20.0) Blood Type Gel Antibody Screen Crossmatch See Detail 06/28/19 Range/Units 13:15 WBC (4.23-9.07) K/mm3 RBC (4.63-6.08) M/mm3 Hgb (13.7-17.5) gm/dl Hct (40.1-51.0) % MCV (79.0-92.2) fl MCH (25.7-32.2) pg MCHC (32.2-35.5) g/dl RDW Std Deviation (35.1-43.9) fL Plt Count (163-337) K/mm3 MPV (9.4-12.3) fl Neut % (Auto) (34.0-67.9) % Lymph % (Auto) (21.8-53.1) % [place] % (Auto) (5.3-12.2) % Eos % (Auto) (0.8-7.0) Baso % (Auto) (0.1-1.2) % Neut # (Auto) (1.78-5.38) K/mm3 Lymph # (Auto) (1.32-3.57) K/mm3 [place] # (Auto) (0.30-0.82) K/mm3 Eos # (Auto) (0.04-0.54) K/mm3 Baso # (Auto) (0.01-0.08) K/mm3 Manual Slide Review PT (9.7-12.0) SECONDS INR Sodium (136-145) mEq/L Potassium (3.5-5.1) mEq/L Chloride (98-107) mEq/L Carbon Dioxide (21-32) mEq/L Anion Gap (5-15) BUN (7-18) mg/dL Creatinine (0.7-1.3) mg/dL Est Cr Clr Drug Dosing mL/min Estimated GFR (MDRD) (>60) mL/min BUN/Creatinine Ratio (14-18) Glucose (83-115) mg/dL POC Glucose (83-110) mg/dL Lactic Acid 4.7 H* (0.4-2.0) mmol/L Calcium (8.5-10.1) mg/dL Magnesium (1.8-2.4) mg/dl Total Bilirubin (0.2-1.0) mg/dL AST (15-37) U/L ALT (16-63) U/L Alkaline Phosphatase (46-116) U/L Troponin I (0.00-0.056) ng/mL C-Reactive Protein (<1.0) mg/dL Total Protein (6.4-8.2) g/dl Albumin (3.4-5.0) g/dl Globulin gm/dL Albumin/Globulin Ratio (1-2) Vancomycin Trough (10.0-20.0) Blood Type Gel Antibody Screen Crossmatch [place] Results Last 24 Hours: Microbiology 06/26/19 17:15 Urine Culture - Final Urine, Quick Cath (In-Out) NO GROWTH AFTER 2 DAYS 06/26/19 16:33 Aerobic Blood Culture - Preliminary Blood - Venous NO GROWTH AFTER 1 DAY Anaerobic Blood Culture - Preliminary NO GROWTH AFTER 1 DAY 06/26/19 16:40 Aerobic Blood Culture - Preliminary Blood - Venous - Lab Draw NO GROWTH AFTER 1 DAY Anaerobic Blood Culture - Preliminary NO GROWTH AFTER 1 DAY Med Orders - Current: Current Medications Acetaminophen (Tylenol) 650 mg PO Q4H PRN PRN Reason: Pain (Mild 1-3)/fever Last Admin: 06/28/19 03:25 Dose: 650 mg Furosemide (Lasix) 80 mg PO DAILY [facility] Last Admin: 06/28/19 09:57 Dose: Not Given Guaifenesin (Mucinex) 1,200 mg PO BID [facility] Last Admin: 06/28/19 12:13 Dose: 1,200 mg Cefepime HCl 2 gm/ Premix 50 mls @ 100 mls/hr IV Q12H [facility] Last Admin: 06/28/19 09:29 Dose: 100 mls/hr Vancomycin HCl 1.75 gm/ Sodium (Chloride) 500 mls @ 250 mls/hr IV Q18H [facility] Last Admin: 06/28/19 12:54 Dose: 250 mls/hr Levofloxacin/Dextrose 750 mg/ (Premix) 150 mls @ 100 mls/hr IV Q48H [facility] Sodium Chloride (Normal Saline) 100 mls @ 999 mls/sec IV STAT [facility] Norepinephrine Bitartrate 4 mg (/ Dextrose/Water) 250 mls @ 7.5 mls/hr IV TITRATE [facility]; Protocol Last Titration: 06/28/19 14:48 Dose: 10 mcg/min, 37.5 mls/hr Diltiazem HCl 125 mg/ Sodium (Chloride) 125 mls @ 5 mls/hr IV TITRATE [facility]; Protocol Sodium Chloride (Normal Saline) 1,000 mls @ 125 mls/hr IV ASDIRECTED [facility] Last Infusion: 06/28/19 13:37 Dose: Infused Ipratropium [place] (Atrovent) 0.5 mg NEB Q6HRRT [facility] Last Admin: 06/28/19 14:31 Dose: 0.5 mg Levalbuterol HCl (Xopenex) 1.25 mg NEB Q6HRRT [facility] Last Admin: 06/28/19 14:30 Dose: 1.25 mg Levalbuterol HCl (Xopenex) 1.25 mg NEB Q2H PRN PRN Reason: Shortness of Breath Methylprednisolone Sodium Succinate (Solu-Medrol) 40 mg IVPUSH Q6H [facility] Last Admin: 06/28/19 11:15 Dose: 40 mg Metoprolol Succinate (Toprol Xl) 75 mg PO DAILY [facility] Last Admin: 06/28/19 12:14 Dose: Not Given Nystatin (Nystop) 0 gm TOP BID PRN PRN Reason: Rash Ondansetron HCl (Zofran) 4 mg IV Q4H PRN PRN Reason: Nausea/Vomiting Rosuvastatin Calcium (Crestor) 10 mg PO DAILY [facility] Last Admin: 06/28/19 12:13 Dose: 10 mg Sodium Chloride (Saline Flush) 10 ml FLUSH ASDIRECTED PRN PRN Reason: Keep Vein Open Last Admin: 06/26/19 17:00 Dose: 10 ml Terazosin HCl (Hytrin) 2 mg PO DAILY [facility] Last Admin: 06/28/19 12:14 Dose: Not Given Vancomycin HCl (Pharmacy To Dose - Vancomycin) 0 dose .XX ASDIRECTED PRN PRN Reason: RX TO DOSE VANCOMYCIN Discontinued Medications Acetaminophen (Tylenol) 650 mg PO NOW ONE Stop: 06/26/19 20:17 Last Admin: 06/26/19 20:22 Dose: 650 mg Albuterol (Proventil Neb Soln) 2.5 mg NEB Q2H PRN PRN Reason: Shortness Of Breath/wheezing Albuterol/Ipratropium (Duoneb 3.0-0.5 Mg/3 Ml) 3 ml NEB Q4H [facility] Last Admin: 06/27/19 17:17 Dose: 3 ml Factor IX (Pha) (Kcentra) 1,500 unit IV ONETIME ONE Stop: 06/28/19 13:16 Last Admin: 06/28/19 13:20 Dose: 1,500 unit Furosemide (Lasix) 80 mg IVPUSH NOW ONE Stop: 06/26/19 18:58 Last Admin: 06/26/19 19:21 Dose: 80 mg Furosemide (Lasix) 60 mg IVPUSH ONETIME ONE Stop: 06/27/19 16:01 Last Admin: 06/27/19 15:53 Dose: 60 mg Sodium Chloride (Normal Saline) 1,000 mls @ 999 mls/hr IV BOLUS ONE Stop: 06/26/19 17:17 Last Admin: 06/26/19 17:05 Dose: 999 mls/hr Levofloxacin/Dextrose 500 mg/ (Premix) 100 mls @ 100 mls/hr IV ONETIME ONE Stop: 06/26/19 19:26 Last Admin: 06/26/19 19:09 Dose: 100 mls/hr Vancomycin HCl 2 gm/ Sodium (Chloride) 500 mls @ 250 mls/hr IV ONETIME ONE Stop: 06/26/19 23:59 Last Admin: 06/26/19 22:24 Dose: 250 mls/hr Levofloxacin/Dextrose 750 mg/ (Premix) 150 mls @ 100 mls/hr IV Q24H [facility] Last Admin: 06/27/19 20:45 Dose: 100 mls/hr Vancomycin HCl 1.75 gm/ Sodium (Chloride) 500 mls @ 250 mls/hr IV Q24H [facility] Sodium Chloride (Normal Saline) 100 mls @ 5 mls/sec IV ASDIRECTED [facility] Sodium Chloride (Normal Saline) Confirm Administered Dose 1,000 mls @ as directed .ROUTE .ST-MED ONE Stop: 06/28/19 07:14 Last Admin: 06/28/19 08:53 Dose: Not Given Phytonadione 10 mg/ Sodium (Chloride) 51 mls @ 100 mls/hr IV NOW ONE Stop: 06/28/19 09:45 Last Admin: 06/28/19 09:21 Dose: 100 mls/hr Sodium Chloride (Normal Saline) Confirm Administered Dose 1,000 mls @ as directed .ROUTE .STK-MED ONE Stop: 06/28/19 09:00 Last Admin: 06/28/19 09:45 Dose: 999 mls/hr Sodium Chloride (Normal Saline) 1,000 mls @ 999 mls/min IV STAT ONE Stop: 06/28/19 07:16 Last Admin: 06/28/19 09:58 Dose: Not Given Sodium Chloride (Normal Saline) Confirm Administered Dose 1,000 mls @ as directed .ROUTE .STK-MED ONE Stop: 06/28/19 14:51 Last Admin: 06/28/19 15:05 Dose: 50 mls/hr Iopamidol (Isovue-370 (76%)) 100 ml IVPUSH ONETIME ONE Stop: 06/28/19 07:06 Last Admin: 06/28/19 07:24 Dose: Not Given Iopamidol (Isovue-370 (76%)) 40 ml IVPUSH ONETIME ONE Stop: 06/28/19 07:06 Last Admin: 06/28/19 07:24 Dose: Not Given Lisinopril (Prinivil) 10 mg PO BID [facility] Methylprednisolone Sodium Succinate (Solu-Medrol) 60 mg IVPUSH Q6H [facility] Last Admin: 06/28/19 03:24 Dose: 60 mg Metoprolol Tartrate (Lopressor) Confirm Administered Dose 5 mg .ROUTE .STK-MED ONE Stop: 06/28/19 06:13 Last Admin: 06/28/19 08:28 Dose: Not Given Metoprolol Tartrate (Lopressor) 5 mg IVPUSH ONETIME ONE Stop: 06/28/19 06:19 Last Admin: 06/28/19 07:24 Dose: Not Given Warfarin Sodium (Pharmacy To Dose - Warfarin) 0 dose .XX ASDIRECTED PRN PRN Reason: RX TO DOSE WARFARIN Warfarin Sodium (Coumadin) 2.5 mg PO ONETIME ONE Stop: 06/26/19 23:31 Last Admin: 06/27/19 00:19 Dose: 2.5 mg Warfarin Sodium (Coumadin) 2.5 mg PO QPM [facility] Stop: 06/27/19 21:00 Last Admin: 06/27/19 17:40 Dose: 2.5 mg Warfarin Sodium (Coumadin Sliding Scale) 0 each PO QPM [facility] Stop: 06/28/19 18:01 - Exam Quality Assessment: Supplemental Oxygen General: Alert HEENT: Pupils Equal Neck: Supple Lungs: Decreased Breath Sounds, Rales Cardiovascular: Regular Rate, Irregular Rhythm GI/Abdominal Exam: Soft, Distended, Tender (mild RUQ tenderness) Extremities: Pedal Edema (2+ above knee) Skin: Warm Psy/Mental Status: Alert, Normal Affect, Normal Mood - Problem List Review Problem List Initiated/Reviewed/Updated: Yes - My Orders Last 24 Hours: My Active Orders 06/27/19 16:00 Vancomycin 1.75 gm Sodium Chloride 0.9% [Normal Saline] 500 ml IV Q18H 06/27/19 19:31 Levalbuterol HCl [Xopenex] 1.25 mg NEB Q2H PRN 06/27/19 23:00 Ipratropium [Atrovent] 0.5 mg NEB Q6HRRT Levalbuterol HCl [Xopenex] 1.25 mg NEB Q6HRRT 06/28/19 07:13 Patient Status [ADT] Routine 06/28/19 07:15 EKG Documentation Completion [RC] ASDIRECTED 06/28/19 08:04 Transfuse Fresh Frozen Plasma [COMM] Stat Transfuse Fresh Frozen Plasma [COMM] Stat Transfuse PRBC [Transfuse Red Blood Cells] [COMM] Stat 06/28/19 08:30 Consult to Physician [CONS] Stat Central Venous Line Insertion [OM.PC] Routine 06/28/19 08:47 Sodium Chloride 0.9% [Normal Saline] 100 ml IV STAT 06/28/19 09:00 Diltiazem 125 mg Sodium Chloride 0.9% [Normal Saline] 100 ml IV TITRATE Norepinephrine [Levophed] 4 mg Dextrose 5% in Water 246 ml IV TITRATE 06/28/19 09:30 Sodium Chloride 0.9% [Normal Saline] 1,000 ml IV ASDIRECTED 06/28/19 10:00 methylPREDNISolone Sod Succ [Solu-MEDROL] 40 mg IVPUSH Q6H 06/28/19 10:10 CULTURE BLOOD [BC] Stat 06/28/19 13:29 LACTIC ACID [CHEM] Routine 06/28/19 14:01 Notify Provider Consults [RC] ASDIRECTED 06/29/19 05:11 C-REACTIVE PROTEIN [CHEM] AM CBC WITH AUTO DIFF [HEME] AM COMPREHENSIVE METABOLIC PN,CMP [CHEM] AM INR,PT,PROTHROMBIN TIME [COAG] AM MAGNESIUM [CHEM] AM 06/29/19 20:00 Levofloxacin/Dextrose 5%-Water [Levaquin in D5W 750 MG/150 ML] 750 mg Premix Bag 1 bag IV Q48H 06/29/19 21:00 VANCOMYCIN TROUGH [CHEM] Timed - Plan Plan:: Assessment * Hypovolemic/hemorrhagic shock * Recovered following IV fluids, norepinephrine, PRBC * Currently off norepinephrine * Large rectus sheath hematoma on the right measuring 19.7 cm x 9.5 cm x 18.7 cm secondary to elevated INR. * Acutely elevated INR likely secondary to triple antibiotics. * INR on 06/26: 2.8; 06/27 2.9; 06/28: 5.2 repeat 4 hours later 5.8 * Now corrected with FFP, Kcentra, and vitamin K * Left lower lobe pneumonia * Levaquin, cefepime, and vancomycin * Solu-Medrol * Respiratory failure * Acute on chronic congestive heart failure - unclear type since we don't have an echocardiogram * Lasix 40 mg IV x1, may need to repeat. * Re-evaluate fluid status in am * Rate controlled atrial fibrillation * Help metoprolol 2/2 hypovolemic shock * May need diltiazem drip if rate increases. * Acute on chronic renal insufficiency with acute renal injury * Worsened 2/2 shock * Improved this afternoon following fluid resuscitation * History of CVA with right-sided weakness and dysarthria; Son states that although he has had a stroke he is still functioning mentally and can make his own decisions. * History of hypertension and hyperlipidemia Plan * Transferred to ICU * BiPAP PRN- patient is a DNI and DNR. * Xopenex/Atrovent every 6 hours and Xopenex every 2 hours when necessary * cefepime and vancomycin pharmacy to dose * continue Levaquin pharmacy to dose * DC warfarin 2/2 rectus sheath hematoma * Follow H/H * Daily CBC, CMP, mag, and INR * VTE prophylaxis with SCDs * CODE STATUS: DNR/DNI; madan pt stated he was ready to . He doesn't want any further aggressive treatment. We will continue to monitor overnight, utilizing current treatment plan, but if he re-bleeds or significantly deteriorates we will not aggressively treat. Re-address this in the morning with him and his children. * Length of stay likely 3-4 more days.
[2019-06-28] MEDS ORDERED: Furosemide 40 MG/4 ML VIAL IVPUSH ONE (17:53)
[2019-06-28] MEDS ORDERED: Warfarin Sliding Scale PO SCH (18:00)
[2019-06-28] MEDS: Furosemide 100 MG/10 ML SDV IVPUSH SCH (22:53)
[2019-06-29] MEDS: Sodium Chloride 0.9% 1,000 ML IV SCH (00:09)
[2019-06-29] MEDS: Vancomycin 1.75 GM in Sodium Chloride 0.9% 500 ML IV SCH (03:08)
[2019-06-29] MEDS: methylPREDNISolone Sodium Succinate 40 MG/1 ML SDV IVPUSH SCH ×2 (03:10→10:20)
[2019-06-29] MEDS: Levalbuterol HCl 1.25 MG/3 ML Neb NEB SCH ×3 (03:35→08:17)
[2019-06-29] MEDS: Ipratropium 0.02% 0.5 MG/2.5 ML Neb Soln NEB SCH ×3 (03:35→08:17)
[2019-06-29] MEDS: Furosemide 100 MG/10 ML SDV IVPUSH SCH ×2 (04:11→10:23)
[2019-06-29] MEDS ORDERED: Metoprolol Tartrate 50 MG Tab PO SCH (08:00)
[2019-06-29] MEDS: Rosuvastatin 10 MG Tab PO SCH (08:21)
[2019-06-29] MEDS: guaiFENesin 600 MG Tab.ER PO SCH (08:21)
[2019-06-29] MEDS: Cefepime 2 GM in Premix Bag 1 BAG IV SCH (08:22)
[2019-06-29] MEDS ORDERED: HYDROmorphone 1 MG/ML Syringe IVPUSH PRN (12:26)
[2019-06-29] MEDS ORDERED: LORazepam 2 MG/ML SDV IVPUSH PRN (12:28)
--- NOTE | 2019-06-29 12:31 | PCM.SN ---
- Free Text/Narrative Note: I had multiple discussions with the patient and his children today in regards to his care. Patient is insistent on not continuing with aggressive treatment. Patient would like to have de-escalation of care, switch to comfort care only, and transfer back to [facility] for end-of-life care. Family requests not to consult hospice.
[2019-06-29] MEDS: oxyCODONE 5 MG Tab PO PRN (13:49)
--- NOTE | 2019-06-29 14:45 | PCM.PN ---
- General Info Date of Service: 06/29/19 Admission Dx/Problem (Free Text): Admission Diagnosis/Problem Admission Diagnosis/Problem Pneumonia Subjective Update: patient is requesting de-escalation of care. Patient and his children, son and daughter, understand that do so would lead to his . Patient understands the consequences and states he does not want to continue with current management or aggressive care. overnight patient did require increased oxygen. Nursing and respiratory therapy tried to get him on CPAP or BiPAP and he refused. Functional Status: Denies: Pain Controlled - Review of Systems General: Reports: Fatigue HEENT: Reports: No Symptoms Pulmonary: Reports: Shortness of Breath Cardiovascular: Reports: Edema Gastrointestinal: Reports: Abdominal Pain Musculoskeletal: Reports: No Symptoms Psychiatric: Reports: No Symptoms - Patient Data Vitals - Most Recent: Last Vital Signs Temp 97.8 F 06/29/19 12:00 Pulse 117 H 06/29/19 08:21 Resp 20 06/29/19 13:07 BP 97/70 06/29/19 12:00 Pulse Ox 95 06/29/19 13:07 Weight - Most Recent: 260 lb 6.4 oz I&O - Last 24 Hours: Intake & Output 06/28/19 06/29/19 06/29/19 22:59 06:59 14:59 Intake Total 4246 1593 50 Output Total 300 800 950 Balance 3946 793 -900 Lab Results Last 24 Hours: Laboratory Results - last 24 hr 06/26/19 06/28/19 06/28/19 Range/Units 22:19 07:45 13:15 WBC (4.23-9.07) K/mm3 RBC (4.63-6.08) M/mm3 Hgb (13.7-17.5) gm/dl Hct (40.1-51.0) % MCV (79.0-92.2) fl MCH (25.7-32.2) pg MCHC (32.2-35.5) g/dl RDW Std Deviation (35.1-43.9) fL Plt Count (163-337) K/mm3 MPV (9.4-12.3) fl Neut % (Auto) (34.0-67.9) % Lymph % (Auto) (21.8-53.1) % [place] % (Auto) (5.3-12.2) % Eos % (Auto) (0.8-7.0) Baso % (Auto) (0.1-1.2) % Neut # (Auto) (1.78-5.38) K/mm3 Lymph # (Auto) (1.32-3.57) K/mm3 [place] # (Auto) (0.30-0.82) K/mm3 Eos # (Auto) (0.04-0.54) K/mm3 Baso # (Auto) (0.01-0.08) K/mm3 Manual Slide Review PT (9.7-12.0) SECONDS INR Sodium (136-145) mEq/L Potassium (3.5-5.1) mEq/L Chloride (98-107) mEq/L Carbon Dioxide (21-32) mEq/L Anion Gap (5-15) BUN (7-18) mg/dL Creatinine (0.7-1.3) mg/dL Est Cr Clr Drug Dosing mL/min Estimated GFR (MDRD) (>60) mL/min BUN/Creatinine Ratio (14-18) Glucose (83-115) mg/dL Lactic Acid 4.7 H* (0.4-2.0) mmol/L Calcium (8.5-10.1) mg/dL Magnesium (1.8-2.4) mg/dl Total Bilirubin (0.2-1.0) mg/dL AST (15-37) U/L ALT (16-63) U/L Alkaline Phosphatase (46-116) U/L C-Reactive Protein (<1.0) mg/dL NT-Pro-B Natriuret Pep (0-450) pg/mL Total Protein (6.4-8.2) g/dl Albumin (3.4-5.0) g/dl Globulin gm/dL Albumin/Globulin Ratio (1-2) Adenovirus (PCR) Not detected (Not Detected) B. pertussis DNA (PCR) Not detected (Not Detected) B.parapertussis DNA PCR Not detected (Not Detected) C. pneumoniae DNA (PCR) Not detected (Not Detected) Coronavirus (PCR) Not detected (Not Detected) Human Metapneumovir PCR Not detected (Not Detected) Influenza A (RT-PCR) Not detected (Not Detected) Influenza B (RT-PCR) Not detected (Not Detected) M. pneumoniae (PCR) Not detected (Not Detected) Parainfluen 1,2,3,4 PCR Not detected (Not Detected) RSV (PCR) Not detected (Not Detected) Entero/Rhino (PCR) Not detected (Not Detected) Blood Type O NEGATIVE Gel Antibody Screen Negative Crossmatch See Detail 06/28/19 06/28/19 06/28/19 Range/Units 16:34 17:10 17:10 WBC (4.23-9.07) K/mm3 RBC (4.63-6.08) M/mm3 Hgb 9.3 L D (13.7-17.5) gm/dl Hct 29.1 L (40.1-51.0) % MCV (79.0-92.2) fl MCH (25.7-32.2) pg MCHC (32.2-35.5) g/dl RDW Std Deviation (35.1-43.9) fL Plt Count (163-337) K/mm3 MPV (9.4-12.3) fl Neut % (Auto) (34.0-67.9) % Lymph % (Auto) (21.8-53.1) % [place] % (Auto) (5.3-12.2) % Eos % (Auto) (0.8-7.0) Baso % (Auto) (0.1-1.2) % Neut # (Auto) (1.78-5.38) K/mm3 Lymph # (Auto) (1.32-3.57) K/mm3 [place] # (Auto) (0.30-0.82) K/mm3 Eos # (Auto) (0.04-0.54) K/mm3 Baso # (Auto) (0.01-0.08) K/mm3 Manual Slide Review PT (9.7-12.0) SECONDS INR Sodium 146 H (136-145) mEq/L Potassium 4.5 (3.5-5.1) mEq/L Chloride 110 H (98-107) mEq/L Carbon Dioxide 26 (21-32) mEq/L Anion Gap 14.5 (5-15) BUN 47 H (7-18) mg/dL Creatinine 2.0 H (0.7-1.3) mg/dL Est Cr Clr Drug Dosing 29.40 mL/min Estimated GFR (MDRD) 32 (>60) mL/min BUN/Creatinine Ratio 23.5 H (14-18) Glucose 170 H (83-115) mg/dL Lactic Acid 1.9 (0.4-2.0) mmol/L Calcium 7.0 L (8.5-10.1) mg/dL Magnesium (1.8-2.4) mg/dl Total Bilirubin (0.2-1.0) mg/dL AST (15-37) U/L ALT (16-63) U/L Alkaline Phosphatase (46-116) U/L C-Reactive Protein (<1.0) mg/dL NT-Pro-B Natriuret Pep (0-450) pg/mL Total Protein (6.4-8.2) g/dl Albumin (3.4-5.0) g/dl Globulin gm/dL Albumin/Globulin Ratio (1-2) Adenovirus (PCR) (Not Detected) B. pertussis DNA (PCR) (Not Detected) B.parapertussis DNA PCR (Not Detected) C. pneumoniae DNA (PCR) (Not Detected) Coronavirus (PCR) (Not Detected) Human Metapneumovir PCR (Not Detected) Influenza A (RT-PCR) (Not Detected) Influenza B (RT-PCR) (Not Detected) M. pneumoniae (PCR) (Not Detected) Parainfluen 1,2,3,4 PCR (Not Detected) RSV (PCR) (Not Detected) Entero/Rhino (PCR) (Not Detected) Blood Type Gel Antibody Screen Crossmatch 06/28/19 06/29/19 06/29/19 Range/Units 20:55 04:11 04:11 WBC 15.32 H (4.23-9.07) K/mm3 RBC 2.98 L (4.63-6.08) M/mm3 Hgb 8.7 L 8.1 L (13.7-17.5) gm/dl Hct 26.9 L 25.6 L (40.1-51.0) % MCV 85.9 D (79.0-92.2) fl MCH 27.2 (25.7-32.2) pg MCHC 31.6 L (32.2-35.5) g/dl RDW Std Deviation 45.1 H (35.1-43.9) fL Plt Count 158 L D (163-337) K/mm3 MPV 10.4 (9.4-12.3) fl Neut % (Auto) 89.5 H (34.0-67.9) % Lymph % (Auto) 4.7 L (21.8-53.1) % [place] % (Auto) 5.0 L (5.3-12.2) % Eos % (Auto) 0 L (0.8-7.0) Baso % (Auto) 0.1 (0.1-1.2) % Neut # (Auto) 13.72 H (1.78-5.38) K/mm3 Lymph # (Auto) 0.72 L (1.32-3.57) K/mm3 [place] # (Auto) 0.76 (0.30-0.82) K/mm3 Eos # (Auto) 0.00 L (0.04-0.54) K/mm3 Baso # (Auto) 0.01 (0.01-0.08) K/mm3 Manual Slide Review Abnormal smear PT (9.7-12.0) SECONDS INR Sodium 142 (136-145) mEq/L Potassium 4.5 (3.5-5.1) mEq/L Chloride 109 H (98-107) mEq/L Carbon Dioxide 26 (21-32) mEq/L Anion Gap 11.5 (5-15) BUN 50 H (7-18) mg/dL Creatinine 2.0 H (0.7-1.3) mg/dL Est Cr Clr Drug Dosing 29.40 mL/min Estimated GFR (MDRD) 32 (>60) mL/min BUN/Creatinine Ratio 25.0 H (14-18) Glucose 156 H (83-115) mg/dL Lactic Acid (0.4-2.0) mmol/L Calcium 7.2 L (8.5-10.1) mg/dL Magnesium 2.0 (1.8-2.4) mg/dl Total Bilirubin 0.4 (0.2-1.0) mg/dL AST 39 H (15-37) U/L ALT 23 (16-63) U/L Alkaline Phosphatase 41 L (46-116) U/L C-Reactive Protein 5.4 H* (<1.0) mg/dL NT-Pro-B Natriuret Pep (0-450) pg/mL Total Protein 5.2 L (6.4-8.2) g/dl Albumin 2.0 L (3.4-5.0) g/dl Globulin 3.2 gm/dL Albumin/Globulin Ratio 0.6 L (1-2) Adenovirus (PCR) (Not Detected) B. pertussis DNA (PCR) (Not Detected) B.parapertussis DNA PCR (Not Detected) C. pneumoniae DNA (PCR) (Not Detected) Coronavirus (PCR) (Not Detected) Human Metapneumovir PCR (Not Detected) Influenza A (RT-PCR) (Not Detected) Influenza B (RT-PCR) (Not Detected) M. pneumoniae (PCR) (Not Detected) Parainfluen 1,2,3,4 PCR (Not Detected) RSV (PCR) (Not Detected) Entero/Rhino (PCR) (Not Detected) Blood Type Gel Antibody Screen Crossmatch 06/29/19 06/29/19 Range/Units 04:11 09:06 WBC (4.23-9.07) K/mm3 RBC (4.63-6.08) M/mm3 Hgb (13.7-17.5) gm/dl Hct (40.1-51.0) % MCV (79.0-92.2) fl MCH (25.7-32.2) pg MCHC (32.2-35.5) g/dl RDW Std Deviation (35.1-43.9) fL Plt Count (163-337) K/mm3 MPV (9.4-12.3) fl Neut % (Auto) (34.0-67.9) % Lymph % (Auto) (21.8-53.1) % [place] % (Auto) (5.3-12.2) % Eos % (Auto) (0.8-7.0) Baso % (Auto) (0.1-1.2) % Neut # (Auto) (1.78-5.38) K/mm3 Lymph # (Auto) (1.32-3.57) K/mm3 [place] # (Auto) (0.30-0.82) K/mm3 Eos # (Auto) (0.04-0.54) K/mm3 Baso # (Auto) (0.01-0.08) K/mm3 Manual Slide Review PT 12.6 H D (9.7-12.0) SECONDS INR 1.17 Sodium (136-145) mEq/L Potassium (3.5-5.1) mEq/L Chloride (98-107) mEq/L Carbon Dioxide (21-32) mEq/L Anion Gap (5-15) BUN (7-18) mg/dL Creatinine (0.7-1.3) mg/dL Est Cr Clr Drug Dosing mL/min Estimated GFR (MDRD) (>60) mL/min BUN/Creatinine Ratio (14-18) Glucose (83-115) mg/dL Lactic Acid (0.4-2.0) mmol/L Calcium (8.5-10.1) mg/dL Magnesium (1.8-2.4) mg/dl Total Bilirubin (0.2-1.0) mg/dL AST (15-37) U/L ALT (16-63) U/L Alkaline Phosphatase (46-116) U/L C-Reactive Protein (<1.0) mg/dL NT-Pro-B Natriuret Pep 4849 H (0-450) pg/mL Total Protein (6.4-8.2) g/dl Albumin (3.4-5.0) g/dl Globulin gm/dL Albumin/Globulin Ratio (1-2) Adenovirus (PCR) (Not Detected) B. pertussis DNA (PCR) (Not Detected) B.parapertussis DNA PCR (Not Detected) C. pneumoniae DNA (PCR) (Not Detected) Coronavirus (PCR) (Not Detected) Human Metapneumovir PCR (Not Detected) Influenza A (RT-PCR) (Not Detected) Influenza B (RT-PCR) (Not Detected) M. pneumoniae (PCR) (Not Detected) Parainfluen 1,2,3,4 PCR (Not Detected) RSV (PCR) (Not Detected) Entero/Rhino (PCR) (Not Detected) Blood Type Gel Antibody Screen Crossmatch Young Results Last 24 Hours: Microbiology 06/28/19 10:10 Aerobic Blood Culture - Preliminary Blood NO GROWTH AFTER 1 DAY Anaerobic Blood Culture - Preliminary NO GROWTH AFTER 1 DAY 06/26/19 17:15 Streptococcus pneumoniae Antigen (M - Final Urine 06/26/19 17:15 Legionella Urinary Antigen - Final Urine 06/26/19 16:33 Aerobic Blood Culture - Preliminary Blood - Venous NO GROWTH AFTER 2 DAYS Anaerobic Blood Culture - Preliminary NO GROWTH AFTER 2 DAYS 06/26/19 16:40 Aerobic Blood Culture - Preliminary Blood - Venous - Lab Draw NO GROWTH AFTER 2 DAYS Anaerobic Blood Culture - Preliminary NO GROWTH AFTER 2 DAYS 06/26/19 17:15 Urine Culture - Final Urine, Quick Cath (In-Out) NO GROWTH AFTER 2 DAYS Med Orders - Current: Current Medications Acetaminophen (Tylenol) 650 mg PO Q4H PRN PRN Reason: Pain (Mild 1-3)/fever Last Admin: 06/28/19 03:25 Dose: 650 mg Hydromorphone HCl (Dilaudid) 1 mg IVPUSH Q2H PRN PRN Reason: Abdominal Pain Levalbuterol HCl (Xopenex) 1.25 mg NEB Q2H PRN PRN Reason: Shortness of Breath Lorazepam (Ativan) 0.5 mg IVPUSH Q4H PRN PRN Reason: Anxiety Nystatin (Nystop) 0 gm TOP BID PRN PRN Reason: Rash Ondansetron HCl (Zofran) 4 mg IV Q4H PRN PRN Reason: Nausea/Vomiting Oxycodone HCl (Oxycodone) 10 mg PO Q4H PRN PRN Reason: Pain Last Admin: 06/29/19 13:49 Dose: 10 mg Sodium Chloride (Saline Flush) 10 ml FLUSH ASDIRECTED PRN PRN Reason: Keep Vein Open Last Admin: 06/26/19 17:00 Dose: 10 ml Discontinued Medications Acetaminophen (Tylenol) 650 mg PO NOW ONE Stop: 06/26/19 20:17 Last Admin: 06/26/19 20:22 Dose: 650 mg Albuterol (Proventil Neb Soln) 2.5 mg NEB Q2H PRN PRN Reason: Shortness Of Breath/wheezing Albuterol/Ipratropium (Duoneb 3.0-0.5 Mg/3 Ml) 3 ml NEB Q4H [facility] Last Admin: 06/27/19 17:17 Dose: 3 ml Factor IX (Pha) (Kcentra) 1,500 unit IV ONETIME ONE Stop: 06/28/19 13:16 Last Admin: 06/28/19 13:20 Dose: 1,500 unit Furosemide (Lasix) 80 mg IVPUSH NOW ONE Stop: 06/26/19 18:58 Last Admin: 06/26/19 19:21 Dose: 80 mg Furosemide (Lasix) 80 mg PO DAILY [facility] Last Admin: 06/28/19 09:57 Dose: Not Given Furosemide (Lasix) 60 mg IVPUSH ONETIME ONE Stop: 06/27/19 16:01 Last Admin: 06/27/19 15:53 Dose: 60 mg Furosemide (Lasix) 40 mg IVPUSH NOW ONE Stop: 06/28/19 17:54 Last Admin: 06/28/19 18:21 Dose: 40 mg Furosemide (Lasix) 60 mg IVPUSH Q6H [facility] Last Admin: 06/29/19 10:23 Dose: 60 mg Guaifenesin (Mucinex) 1,200 mg PO BID [facility] Last Admin: 06/29/19 08:21 Dose: 1,200 mg Sodium Chloride (Normal Saline) 1,000 mls @ 999 mls/hr IV BOLUS ONE Stop: 06/26/19 17:17 Last Admin: 06/26/19 17:05 Dose: 999 mls/hr Levofloxacin/Dextrose 500 mg/ (Premix) 100 mls @ 100 mls/hr IV ONETIME ONE Stop: 06/26/19 19:26 Last Admin: 06/26/19 19:09 Dose: 100 mls/hr Cefepime HCl 2 gm/ Premix 50 mls @ 100 mls/hr IV Q12H [facility] Last Admin: 06/29/19 08:22 Dose: 100 mls/hr Vancomycin HCl 2 gm/ Sodium (Chloride) 500 mls @ 250 mls/hr IV ONETIME ONE Stop: 06/26/19 23:59 Last Admin: 06/26/19 22:24 Dose: 250 mls/hr Levofloxacin/Dextrose 750 mg/ (Premix) 150 mls @ 100 mls/hr IV Q24H [facility] Last Admin: 06/27/19 20:45 Dose: 100 mls/hr Vancomycin HCl 1.75 gm/ Sodium (Chloride) 500 mls @ 250 mls/hr IV Q24H [facility] Vancomycin HCl 1.75 gm/ Sodium (Chloride) 500 mls @ 250 mls/hr IV Q18H [facility] Last Admin: 06/29/19 03:08 Dose: 250 mls/hr Sodium Chloride (Normal Saline) 100 mls @ 5 mls/sec IV ASDIRECTED [facility] Sodium Chloride (Normal Saline) Confirm Administered Dose 1,000 mls @ as directed .ROUTE .STK-MED ONE Stop: 06/28/19 07:14 Last Admin: 06/28/19 08:53 Dose: Not Given Levofloxacin/Dextrose 750 mg/ (Premix) 150 mls @ 100 mls/hr IV Q48H [facility] Sodium Chloride (Normal Saline) 100 mls @ 999 mls/sec IV STAT [facility] Norepinephrine Bitartrate 4 mg (/ Dextrose/Water) 250 mls @ 7.5 mls/hr IV TITRATE [facility]; Protocol Last Titration: 06/28/19 18:49 Dose: 0 mcg/min, 0 mls/hr Diltiazem HCl 125 mg/ Sodium (Chloride) 125 mls @ 5 mls/hr IV TITRATE [facility]; Protocol Phytonadione 10 mg/ Sodium (Chloride) 51 mls @ 100 mls/hr IV NOW ONE Stop: 06/28/19 09:45 Last Admin: 06/28/19 09:21 Dose: 100 mls/hr Sodium Chloride (Normal Saline) Confirm Administered Dose 1,000 mls @ as directed .ROUTE .STK-MED ONE Stop: 06/28/19 09:00 Last Admin: 06/28/19 09:45 Dose: 999 mls/hr Sodium Chloride (Normal Saline) 1,000 mls @ 50 mls/hr IV ASDIRECTED [facility] Last Admin: 06/29/19 00:09 Dose: 50 mls/hr Sodium Chloride (Normal Saline) 1,000 mls @ 999 mls/min IV STAT ONE Stop: 06/28/19 07:16 Last Admin: 06/28/19 09:58 Dose: Not Given Sodium Chloride (Normal Saline) Confirm Administered Dose 1,000 mls @ as directed .ROUTE .STK-MED ONE Stop: 06/28/19 14:51 Last Admin: 06/28/19 15:05 Dose: 50 mls/hr Iopamidol (Isovue-370 (76%)) 100 ml IVPUSH ONETIME ONE Stop: 06/28/19 07:06 Last Admin: 06/28/19 07:24 Dose: Not Given Iopamidol (Isovue-370 (76%)) 40 ml IVPUSH ONETIME ONE Stop: 06/28/19 07:06 Last Admin: 06/28/19 07:24 Dose: Not Given Ipratropium [place] (Atrovent) 0.5 mg NEB Q6HRRT [facility] Last Admin: 06/29/19 08:17 Dose: 0.5 mg Levalbuterol HCl (Xopenex) 1.25 mg NEB Q6HRRT [facility] Last Admin: 06/29/19 08:17 Dose: 1.25 mg Lisinopril (Prinivil) 10 mg PO BID [facility] Methylprednisolone Sodium Succinate (Solu-Medrol) 60 mg IVPUSH Q6H [facility] Last Admin: 06/28/19 03:24 Dose: 60 mg Methylprednisolone Sodium Succinate (Solu-Medrol) 40 mg IVPUSH Q6H [facility] Last Admin: 06/29/19 10:20 Dose: 40 mg Metoprolol Succinate (Toprol Xl) 75 mg PO DAILY [facility] Last Admin: 06/28/19 12:14 Dose: Not Given Metoprolol Tartrate (Lopressor) Confirm Administered Dose 5 mg .ROUTE .STK-MED ONE Stop: 06/28/19 06:13 Last Admin: 06/28/19 08:28 Dose: Not Given Metoprolol Tartrate (Lopressor) 5 mg IVPUSH ONETIME ONE Stop: 06/28/19 06:19 Last Admin: 06/28/19 07:24 Dose: Not Given Metoprolol Tartrate (Lopressor) 50 mg PO Q12H [facility] Last Admin: 06/29/19 08:21 Dose: 50 mg Rosuvastatin Calcium (Crestor) 10 mg PO DAILY [facility] Last Admin: 06/29/19 08:21 Dose: 10 mg Terazosin HCl (Hytrin) 2 mg PO DAILY [facility] Last Admin: 06/29/19 08:20 Dose: 2 mg Vancomycin HCl (Pharmacy To Dose - Vancomycin) 0 dose .XX ASDIRECTED PRN PRN Reason: RX TO DOSE VANCOMYCIN Warfarin Sodium (Pharmacy To Dose - Warfarin) 0 dose .XX ASDIRECTED PRN PRN Reason: RX TO DOSE WARFARIN Warfarin Sodium (Coumadin) 2.5 mg PO ONETIME ONE Stop: 06/26/19 23:31 Last Admin: 06/27/19 00:19 Dose: 2.5 mg Warfarin Sodium (Coumadin) 2.5 mg PO QPM [facility] Stop: 06/27/19 21:00 Last Admin: 06/27/19 17:40 Dose: 2.5 mg Warfarin Sodium (Coumadin Sliding Scale) 0 each PO QPM [facility] Stop: 06/28/19 18:01 - Exam Quality Assessment: Supplemental Oxygen General: Alert, Oriented Neck: Supple Lungs: Decreased Breath Sounds, Rales Cardiovascular: Irregular Rhythm, Tachycardia GI/Abdominal Exam: Soft, Tender (right upper quadrant tenderness) Extremities: Pedal Edema (2+ pitting edema) - Problem List Review Problem List Initiated/Reviewed/Updated: Yes - My Orders Last 24 Hours: My Active Orders 06/28/19 14:01 Notify Provider Consults [RC] ASDIRECTED 06/29/19 10:40 Antiembolic Devices [RC] PER UNIT ROUTINE SCD [Sequential Compression Device] [OM.PC] Routine 06/29/19 12:23 Patient Status [ADT] Routine 06/29/19 12:26 HYDROmorphone [Dilaudid] 1 mg IVPUSH Q2H PRN Code Status [Resuscitation Status] Routine 06/29/19 12:27 oxyCODONE 10 mg PO Q4H PRN 06/29/19 12:28 LORazepam [Ativan] 0.5 mg IVPUSH Q4H PRN - Plan Plan:: Assessment * Verlin made comfort care only. * Hypovolemic/hemorrhagic shock * Recovered following IV fluids, norepinephrine, PRBC * Currently off norepinephrine * Blood pressures above MAP of 65 * Large rectus sheath hematoma on the right measuring 19.7 cm x 9.5 cm x 18.7 cm secondary to elevated INR. * Drop of Hb over 1 gm/dl overnight. * Possible slow bleed continuing in the rectus sheath. * Pt. does NOT want to pursue further treatment, either IR or blood transfusion. * Acutely elevated INR likely secondary to triple antibiotics. * INR on 06/26: 2.8; 06/27 2.9; 06/28: 5.2 repeat 4 hours later 5.8 * Today INR 1.1 corrected with FFP, Kcentra, and vitamin K * Left lower lobe pneumonia * Stop Levaquin, cefepime, and vancomycin * Stop Solu-Medrol * Respiratory failure * Acute on chronic congestive heart failure - unclear type since we don't have an echocardiogram * Stop Lasix - comfort care * Re-evaluate fluid status in am * Rate controlled atrial fibrillation * Help metoprolol 2/2 hypovolemic shock * Acute on chronic renal insufficiency with acute renal injury * Worsened 2/2 shock * Improved * History of CVA with right-sided weakness and dysarthria; Son states that although he has had a stroke he is still functioning mentally and can make his own decisions. * History of hypertension and hyperlipidemia Plan * Made comfort care ONLY. * Stop antibiotic and other life sustaining treatment. * Dilaudid, oxycodone, and Ativan for treatment. * CODE STATUS: DNR/DNI, COMFORT CARE ONLY; tonight pt stated he was ready to . He doesn't want any further aggressive treatment. We will continue to monitor overnight, utilizing current treatment plan, but if he re-bleeds or significantly deteriorates we will not aggressively treat. Re-address this in the morning with him and his children. * Length of stay discharge tomorrow back to [facility] for end of life care.
[2019-06-29] MEDS ORDERED: Levofloxacin/Dextrose 5%-Water 750 MG in Premix Bag 1 BAG IV SCH (20:00)
--- NOTE | 2019-06-30 07:10 | PCM.DCSUM1 ---
Discharge Summary - Hospital Course HPI Initial Comments: 84-year-old male who is a poor historian so most of the history was obtained through his son and emergency room notes presented to the emergency room via EMS secondary to decreased O2 sats and fever. Patient has had increasing shortness of breath for last couple of days and he was out today at his sons for a football game and towards the end of football game told us and he needs to go to the emergency room. Apparently the staff at [facility], where he resides, recommended he go to the emergency room yesterday. Patient has had increasing difficulties with breathing, generalized weakness and malaise , and a fever 101.2. Pulse ox were as low as low 80s on 3 L and he is usually on room air. Patient has a productive cough but is unable to mobilize sputum. Lab work in the emergency room: WBC 9.5, hemoglobin 10.5, platelet count 156, C- reactive protein 24.0, lactic acid 1.3, proBNP 7419, INR 2.83, sodium 143, potassium 4.7, chloride 109, bicarbonate 33, BUN 31, creatinine 1.5, normal liver function tests except albumin 2.5. Chest x-ray showed a left lower lobe pneumonia In the emergency room he was given Levaquin 500 mg IV and a saline bolus. I then asked for him to get 80 mg of IV Lasix. Diagnosis: Stroke: No - Discharge Data Discharge Date: 06/30/19 Discharge Disposition: DC/Tfer to [facility] Condition: Critical - Referral to Home Health Primary Care Physician: Felicity Al NP - Patient Summary/Data Consults: Consultations 06/26/19 21:05 Respiratory Care Assess and Treatment [CONS] Routine 06/28/19 08:30 Consult to Physician [CONS] Stat Hospital Course: Patient was admitted for pneumonia and respiratory failure. He was placed on BiPAP, started on duo nebs, IV steroids, and triple antibiotic therapy which included Levaquin. The morning after admission his INR was 2.9, but by the next morning I was called at 6:00 secondary to heart rate in the 130s and blood pressures dropping. When I arrived to the floor 20 minutes later patient was in CT getting a head CT. I ordered a CT angiogram of the chest, abdomen, and pelvis in addition. Patient was brought back to the ICU where his blood pressures continue to be low. 2 L of normal saline were ordered. Lab work returned with a significant drop in his hemoglobin down to 8.0 and an increase of his INR to 5.19 from 2.9 just the day before. Central line was placed by Dr. Mcgrath. I ordered a repeat for confirmation and the second hemoglobin was lower at 6.7 with an INR of 5.85. 2 units of fresh frozen plasma and 2 units of packed red blood cells were ordered. Norepinephrine drip was started to improve blood pressure. repeat INR after fresh frozen plasma was 2.32. Kcentra was ordered at this time. CT of the abdomen and pelvis showed a large rectus sheath hematoma with some active bleed measuring transversely 19.7 cm, AP measurements of 9.5 cm, and craniocaudal measurement of about 18.7 cm. No evidence of abdominal aneurysm or rupture. during this entire time I kept the patient and his son updated on all measures. Verlin stabilized over the next 12 hours. That night patient requested de- escalation of care and to be changed to comfort care only. The next morning he did have another 1+ gram per deciliter drop in his hemoglobin. I spoke with family and him on several occasions and patient was changed to comfort care only. - Patient Instructions Diet: Usual Diet as Tolerated Diet, Other: as tolerated Activity: Bedrest Driving: Do Not Drive Other/Special Instructions: Home on comfort care. Patient and family do not want hospice consult. Please contact PCP for further orders. - Discharge Plan *PRESCRIPTION DRUG MONITORING PROGRAM REVIEWED*: No *COPY OF PRESCRIPTION DRUG MONITORING REPORT IN PATIENT GAMALIEL: No Prescriptions/Med Rec: LORazepam [Ativan] 0.5 mg PO Q1H PRN #30 ml PRN Reason: Anxiety Morphine [Morphine 20 MG/ML Soln] 5 mg PO Q30M PRN #30 ml PRN Reason: Pain Home Medications: Home Meds Acetaminophen [Tylenol] 650 mg PO BID 06/26/19 [History] Albuterol Sulfate 2.5 mg IH Q4HR PRN 06/26/19 [History] Acetaminophen [Tylenol] 650 mg PO Q4H PRN tablet 06/30/19 [Rx] LORazepam [Ativan] 0.5 mg PO Q1H PRN #30 ml 06/30/19 [Rx] Morphine [Morphine 20 MG/ML Soln] 5 mg PO Q30M PRN #30 ml 06/30/19 [Rx] Oxygen Therapy Mode: Nasal Cannula Patient Handouts: Heart Failure Action Plan, Sepsis, Adult, Heart Failure, Community-Acquired Pneumonia, Adult Forms: ED Department Discharge Referrals: Maria De Jesus Khanna MD [Physician] - - Discharge Summary/Plan Comment DC Time >30 min.: Yes Discharge Summary/Plan Comment: patient be transferred back to his long-term care with comfort care only. he and his family have requested not to consult hospice at this time. - General Info Date of Service: 06/30/19 Admission Dx/Problem (Free Text: Admission Diagnosis/Problem Admission Diagnosis/Problem Pneumonia Subjective Update: patient states his pain is controlled. Functional Status: Reports: Pain Controlled - Patient Data Vitals - Most Recent: Last Vital Signs Temp 98.1 F 06/29/19 19:15 Pulse 108 H 06/29/19 19:15 Resp 24 H 06/29/19 19:15 BP 93/64 06/29/19 19:15 Pulse Ox 92 L 06/29/19 19:15 Weight - Most Recent: 260 lb 6.4 oz I&O - Last 24 hours: Intake & Output 06/29/19 06/30/19 06/30/19 22:59 06:59 14:59 Intake Total 1099 100 Output Total 400 550 Balance 699 -450 Lab Results - Last 24 hrs: Laboratory Results - last 24 hr 06/29/19 Range/Units 09:06 NT-Pro-B Natriuret Pep 4849 H (0-450) pg/mL CHRISTOPHER Results - Last 24 hrs: Microbiology 06/26/19 16:33 Aerobic Blood Culture - Preliminary Blood - Venous NO GROWTH AFTER 3 DAYS Anaerobic Blood Culture - Preliminary NO GROWTH AFTER 3 DAYS 06/26/19 16:40 Aerobic Blood Culture - Preliminary Blood - Venous - Lab Draw NO GROWTH AFTER 3 DAYS Anaerobic Blood Culture - Preliminary NO GROWTH AFTER 3 DAYS 06/28/19 10:10 Aerobic Blood Culture - Preliminary Blood NO GROWTH AFTER 1 DAY Anaerobic Blood Culture - Preliminary NO GROWTH AFTER 1 DAY Med Orders - Current: Current Medications Acetaminophen (Tylenol) 650 mg PO Q4H PRN PRN Reason: Pain (Mild 1-3)/fever Last Admin: 06/28/19 03:25 Dose: 650 mg Hydromorphone HCl (Dilaudid) 1 mg IVPUSH Q2H PRN PRN Reason: Abdominal Pain Last Admin: 06/29/19 23:26 Dose: 1 mg Levalbuterol HCl (Xopenex) 1.25 mg NEB Q2H PRN PRN Reason: Shortness of Breath Lorazepam (Ativan) 0.5 mg IVPUSH Q4H PRN PRN Reason: Anxiety Nystatin (Nystop) 0 gm TOP BID PRN PRN Reason: Rash Ondansetron HCl (Zofran) 4 mg IV Q4H PRN PRN Reason: Nausea/Vomiting Oxycodone HCl (Oxycodone) 10 mg PO Q4H PRN PRN Reason: Pain Last Admin: 06/29/19 13:49 Dose: 10 mg Sodium Chloride (Saline Flush) 10 ml FLUSH ASDIRECTED PRN PRN Reason: Keep Vein Open Last Admin: 06/26/19 17:00 Dose: 10 ml Discontinued Medications Acetaminophen (Tylenol) 650 mg PO NOW ONE Stop: 06/26/19 20:17 Last Admin: 06/26/19 20:22 Dose: 650 mg Albuterol (Proventil Neb Soln) 2.5 mg NEB Q2H PRN PRN Reason: Shortness Of Breath/wheezing Albuterol/Ipratropium (Duoneb 3.0-0.5 Mg/3 Ml) 3 ml NEB Q4H [facility] Last Admin: 06/27/19 17:17 Dose: 3 ml Factor IX (Pha) (Kcentra) 1,500 unit IV ONETIME ONE Stop: 06/28/19 13:16 Last Admin: 06/28/19 13:20 Dose: 1,500 unit Furosemide (Lasix) 80 mg IVPUSH NOW ONE Stop: 06/26/19 18:58 Last Admin: 06/26/19 19:21 Dose: 80 mg Furosemide (Lasix) 80 mg PO DAILY [facility] Last Admin: 06/28/19 09:57 Dose: Not Given Furosemide (Lasix) 60 mg IVPUSH ONETIME ONE Stop: 06/27/19 16:01 Last Admin: 06/27/19 15:53 Dose: 60 mg Furosemide (Lasix) 40 mg IVPUSH NOW ONE Stop: 06/28/19 17:54 Last Admin: 06/28/19 18:21 Dose: 40 mg Furosemide (Lasix) 60 mg IVPUSH Q6H [facility] Last Admin: 06/29/19 10:23 Dose: 60 mg Guaifenesin (Mucinex) 1,200 mg PO BID [facility] Last Admin: 06/29/19 08:21 Dose: 1,200 mg Sodium Chloride (Normal Saline) 1,000 mls @ 999 mls/hr IV BOLUS ONE Stop: 06/26/19 17:17 Last Admin: 06/26/19 17:05 Dose: 999 mls/hr Levofloxacin/Dextrose 500 mg/ (Premix) 100 mls @ 100 mls/hr IV ONETIME ONE Stop: 06/26/19 19:26 Last Admin: 06/26/19 19:09 Dose: 100 mls/hr Cefepime HCl 2 gm/ Premix 50 mls @ 100 mls/hr IV Q12H [facility] Last Admin: 06/29/19 08:22 Dose: 100 mls/hr Vancomycin HCl 2 gm/ Sodium (Chloride) 500 mls @ 250 mls/hr IV ONETIME ONE Stop: 06/26/19 23:59 Last Admin: 06/26/19 22:24 Dose: 250 mls/hr Levofloxacin/Dextrose 750 mg/ (Premix) 150 mls @ 100 mls/hr IV Q24H [facility] Last Admin: 06/27/19 20:45 Dose: 100 mls/hr Vancomycin HCl 1.75 gm/ Sodium (Chloride) 500 mls @ 250 mls/hr IV Q24H [facility] Vancomycin HCl 1.75 gm/ Sodium (Chloride) 500 mls @ 250 mls/hr IV Q18H [facility] Last Admin: 06/29/19 03:08 Dose: 250 mls/hr Sodium Chloride (Normal Saline) 100 mls @ 5 mls/sec IV ASDIRECTED [facility] Sodium Chloride (Normal Saline) Confirm Administered Dose 1,000 mls @ as directed .ROUTE .STK-MED ONE Stop: 06/28/19 07:14 Last Admin: 06/28/19 08:53 Dose: Not Given Levofloxacin/Dextrose 750 mg/ (Premix) 150 mls @ 100 mls/hr IV Q48H [facility] Sodium Chloride (Normal Saline) 100 mls @ 999 mls/sec IV STAT [facility] Norepinephrine Bitartrate 4 mg (/ Dextrose/Water) 250 mls @ 7.5 mls/hr IV TITRATE [facility]; Protocol Last Titration: 06/28/19 18:49 Dose: 0 mcg/min, 0 mls/hr Diltiazem HCl 125 mg/ Sodium (Chloride) 125 mls @ 5 mls/hr IV TITRATE [facility]; Protocol Phytonadione 10 mg/ Sodium (Chloride) 51 mls @ 100 mls/hr IV NOW ONE Stop: 06/28/19 09:45 Last Admin: 06/28/19 09:21 Dose: 100 mls/hr Sodium Chloride (Normal Saline) Confirm Administered Dose 1,000 mls @ as directed .ROUTE .STK-MED ONE Stop: 06/28/19 09:00 Last Admin: 06/28/19 09:45 Dose: 999 mls/hr Sodium Chloride (Normal Saline) 1,000 mls @ 50 mls/hr IV ASDIRECTED [facility] Last Admin: 06/29/19 00:09 Dose: 50 mls/hr Sodium Chloride (Normal Saline) 1,000 mls @ 999 mls/min IV STAT ONE Stop: 06/28/19 07:16 Last Admin: 06/28/19 09:58 Dose: Not Given Sodium Chloride (Normal Saline) Confirm Administered Dose 1,000 mls @ as directed .ROUTE .STK-MED ONE Stop: 06/28/19 14:51 Last Admin: 06/28/19 15:05 Dose: 50 mls/hr Iopamidol (Isovue-370 (76%)) 100 ml IVPUSH ONETIME ONE Stop: 06/28/19 07:06 Last Admin: 06/28/19 07:24 Dose: Not Given Iopamidol (Isovue-370 (76%)) 40 ml IVPUSH ONETIME ONE Stop: 06/28/19 07:06 Last Admin: 06/28/19 07:24 Dose: Not Given Ipratropium [place] (Atrovent) 0.5 mg NEB Q6HRRT [facility] Last Admin: 06/29/19 08:17 Dose: 0.5 mg Levalbuterol HCl (Xopenex) 1.25 mg NEB Q6HRRT [facility] Last Admin: 06/29/19 08:17 Dose: 1.25 mg Lisinopril (Prinivil) 10 mg PO BID [facility] Methylprednisolone Sodium Succinate (Solu-Medrol) 60 mg IVPUSH Q6H [facility] Last Admin: 06/28/19 03:24 Dose: 60 mg Methylprednisolone Sodium Succinate (Solu-Medrol) 40 mg IVPUSH Q6H [facility] Last Admin: 06/29/19 10:20 Dose: 40 mg Metoprolol Succinate (Toprol Xl) 75 mg PO DAILY [facility] Last Admin: 06/28/19 12:14 Dose: Not Given Metoprolol Tartrate (Lopressor) Confirm Administered Dose 5 mg .ROUTE .STK-MED ONE Stop: 06/28/19 06:13 Last Admin: 06/28/19 08:28 Dose: Not Given Metoprolol Tartrate (Lopressor) 5 mg IVPUSH ONETIME ONE Stop: 06/28/19 06:19 Last Admin: 06/28/19 07:24 Dose: Not Given Metoprolol Tartrate (Lopressor) 50 mg PO Q12H [facility] Last Admin: 06/29/19 08:21 Dose: 50 mg Rosuvastatin Calcium (Crestor) 10 mg PO DAILY [facility] Last Admin: 06/29/19 08:21 Dose: 10 mg Terazosin HCl (Hytrin) 2 mg PO DAILY [facility] Last Admin: 06/29/19 08:20 Dose: 2 mg Vancomycin HCl (Pharmacy To Dose - Vancomycin) 0 dose .XX ASDIRECTED PRN PRN Reason: RX TO DOSE VANCOMYCIN Warfarin Sodium (Pharmacy To Dose - Warfarin) 0 dose .XX ASDIRECTED PRN PRN Reason: RX TO DOSE WARFARIN Warfarin Sodium (Coumadin) 2.5 mg PO ONETIME ONE Stop: 06/26/19 23:31 Last Admin: 06/27/19 00:19 Dose: 2.5 mg Warfarin Sodium (Coumadin) 2.5 mg PO QPM [facility] Stop: 06/27/19 21:00 Last Admin: 06/27/19 17:40 Dose: 2.5 mg Warfarin Sodium (Coumadin Sliding Scale) 0 each PO QPM [facility] Stop: 06/28/19 18:01 - Exam Quality Assessment: Reports: Supplemental Oxygen General: Reports: Alert HEENT: Reports: Pupils Equal Lungs: Reports: Wheezing. Denies: Normal Respiratory Effort Cardiovascular: Reports: Irregular Rhythm, Tachycardia
[2019-06-30] MEDS: oxyCODONE 5 MG Tab PO PRN (10:34)
== END 2019-06-30 11:30 | DRG 193 ==
LOC: JD.ED 16:01 → JD.MS 19:26 → JD.ICU 06-28 07:13 → JD.MS 06-29 18:41
PROVIDERS: ADMIT Family Medicine; ATTEND Family Medicine
PROC: 05HM33Z Insertion of Infusion Device into Right Internal Jugular Vein, Percutaneous Approach (ICD-10-PCS; principal; 2019-06-28)
PROC: B543ZZA Ultrasonography of Right Jugular Veins, Guidance (ICD-10-PCS; 2019-06-28)
PROC: 30233N1 Transfusion of Nonautologous Red Blood Cells into Peripheral Vein, Percutaneous Approach (ICD-10-PCS; 2019-06-28)
PROC: 30233K1 Transfusion of Nonautologous Frozen Plasma into Peripheral Vein, Percutaneous Approach (ICD-10-PCS; 2019-06-28)
PROC: 3E033XZ Introduction of Vasopressor into Peripheral Vein, Percutaneous Approach (ICD-10-PCS; 2019-06-28)
DX: J18.9 Pneumonia, unspecified organism (principal); I11.0 Hypertensive heart disease with heart failure; J18.1 Lobar pneumonia, unspecified organism; R57.1 Hypovolemic shock; H54.7 Unspecified visual loss; N17.9 Acute kidney failure, unspecified; Z86.718 Personal history of other venous thrombosis and embolism; G47.30 Sleep apnea, unspecified; I69.928 Other speech and language deficits following unspecified cerebrovascular disease; E66.9 Obesity, unspecified; E55.9 Vitamin D deficiency, unspecified; I69.351 Hemiplegia and hemiparesis following cerebral infarction affecting right dominant side; E87.2 Acidosis; I13.0 Hypertensive heart and chronic kidney disease with heart failure and stage 1 through stage 4 chronic kidney disease, or unspecified chronic kidney disease; D62 Acute posthemorrhagic anemia; Z66 Do not resuscitate; Z51.5 Encounter for palliative care; I50.9 Heart failure, unspecified; I48.91 Unspecified atrial fibrillation; N18.9 Chronic kidney disease, unspecified; I69.322 Dysarthria following cerebral infarction; I10 Essential (primary) hypertension; E78.5 Hyperlipidemia, unspecified; M79.81 Nontraumatic hematoma of soft tissue; R79.1 Abnormal coagulation profile; E78.00 Pure hypercholesterolemia, unspecified; K59.09 Other constipation; D64.9 Anemia, unspecified; Z79.01 Long term (current) use of anticoagulants; Z79.899 Other long term (current) drug therapy
CPT/HCPCS: 36415; 51702; 71045; 80053; 81001; 83605; 83880; 85007; 85027; 85610; 86140; 87040 ×2; 87086; 87899 ×2; 96361; 96365; 96375; 99285; J1940; J1956; J7040; 36430; 36600; 70450; 70450-26; 71260; 71260-26; 74177; 74177-26; 80048; 80202; 82803; 82962; 83735; 84484; 85014; 85018; 85025; 86850; 86900; 86901; 86922; 87486; 87581; 87632; 87641; 87798; 87804; 93005; 94640; 94660; 94760; 94761; 99222; 99232; 99233; 99239; A9270-GY; C9132; J0692; J1170; J2920; J3370; J3430; J7030; J7050; J7060; J7612-GY; J7620-GY; P9016; P9017